=== PATIENT | male | born 1965 | race Two or more races ===

== ENCOUNTER 2016-12-22 14:23 | Inpatient (IN) | payer MEDICAID ==
[~2016-12-22] VITALS: Ht 165.1 cm; Wt 62.6 kg
[2016-12-22 15:41] LABS: MEAN CORPUSCULAR HEMOGLOBIN 30.8 PG (27.0-31.0); MEAN CORPUSCULAR HGB CONC 34.3 G/DL (32.0-36.0); MEAN CORPUSCULAR VOLUME 90 FL (80-99); MEAN PLATELET VOLUME 8.1 FL (6.5-10.1); PLATELET COUNT 165 K/UL (150-450); RED BLOOD COUNT 2.91 M/UL (4.70-6.10); RED CELL DISTRIBUTION WIDTH 16.7 % (11.6-14.8); WHITE BLOOD COUNT 14.7 K/UL (4.8-10.8)
[2016-12-22 15:42] LABS: BASOPHILS % (AUTO) 0.5 % (0.0-2.0); EOSINOPHILS % (AUTO) 0.1 % (0.0-3.0); LYMPHOCYTES % (AUTO) 4.3 % (20.0-45.0); MONOCYTES % (AUTO) 3.4 % (1.0-10.0); NEUTROPHILS % (AUTO) 91.7 % (45.0-75.0)
[2016-12-22 15:50] LABS: ALANINE AMINOTRANSFERASE 53 U/L (3-41); ALBUMIN/GLOBULIN RATIO 0.6 (1.0-2.7); ANION GAP 15 (5-15); ASPARTATE AMINO TRANSFERASE 207 U/L (5-40); CALCIUM 8.7 mg/dL (8.6-10.2); CARBON DIOXIDE 23 mEQ/L (20-30); CHLORIDE 94 mEQ/L (98-107); CREATININE 1.1 mg/dL (0.7-1.2); GLOMERULAR FILTRATION RATE > 60 mL/min (>60); HEMOLYSIS 0; LIPASE 20 U/L (< 60); POTASSIUM 4.9 mEQ/L (3.4-4.9); SODIUM 132 mEQ/L (135-145); TOTAL PROTEIN 6.9 g/dL (6.6-8.7)
[2016-12-22] MEDS ORDERED: Pantoprazole Inj IVP ONE (16:00)
[2016-12-22] MEDS ORDERED: Morphine Sulfate 4mg/ml Inj IVP ONE (16:00)
[2016-12-22 16:06] LABS: INR 1.3 (0.9-1.1); PROTHROMBIN TIME 13.4 SEC (9.30-11.50)
[2016-12-22 16:09] LABS: BILIRUBIN,DIRECT 4.5 mg/dL (0.1-0.3)
[2016-12-22] MEDS ORDERED: cefTRIAXone 2 GM in NS 110 ML IVPB ONE (16:45)
[2016-12-22 17:17] VITALS: BP 100/72
--- NOTE | 2016-12-22 17:51 | Emergency Room Report ---
History of Present Illness General Chief Complaint: Vomiting Source: Patient Present Illness HPI [id number] with known pancreatic cancer and ?mets with abd pain/distention, and vomiting coffee ground emesis x4 today No witnessed emesis in ED Just restarted chemo last week - this was 2nd time this round of chemo Denies diarrhea ?Fever/chills at home Allergies: Coded Allergies: No Known Allergies (Unverified , 12/22/16) Patient History Past Medical History: other - See hpi Past Surgical History: none Pertinent Family History: none Social History: Denies: smoking, alcohol use, drug use Immunizations: UTD Reviewed Nursing Documentation: PMH: Agreed, PSxH: Agreed Nursing Documentation-PMH Hx Cardiac Problems: No - PANCREATIC CANCER Review of Systems All Other Systems: negative except mentioned in HPI Physical Exam Vital Signs Date Time Temp Pulse Resp B/P (MAP) Pulse Ox O2 Delivery O2 Flow Rate FiO2 12/22/16 14:36 98.4 100 16 100/72 100 Room Air Sp02 EP Interpretation: reviewed, normal General Appearance: normal inspection, well appearing, no apparent distress, alert, GCS 15, non-toxic, mild distress Head: normocephalic, atraumatic Eyes: bilateral eye PERRL, bilateral eye EOMI ENT: normal ENT inspection, hearing grossly normal, normal pharynx, no angioedema, normal voice Respiratory: normal inspection, lungs clear, normal breath sounds, no respiratory distress, no retraction, no wheezing Cardiovascular #1: regular rate, rhythm, no edema Gastrointestinal: normal inspection, normal bowel sounds, no guarding, no rebound, distended, tenderness Genitourinary: no CVA tenderness Musculoskeletal: normal inspection, back normal, normal range of motion, Jason' s Sign negative Neurologic: normal inspection, alert, oriented x3, responsive, cardiac cath technologist III-XII nml as tested, motor strength/tone normal, speech normal Psychiatric: normal inspection, judgement/insight normal, mood/affect normal Skin: no rash, warm/dry, jaundice Medical Decision Making Diagnostic Impression: Primary Impression: Vomiting Qualified Codes: R11.2 - Nausea with vomiting, unspecified Additional Impressions: Ascites Qualified Codes: R18.8 - Other ascites Pancreatic mass Anemia Qualified Codes: D64.9 - Anemia, unspecified Upper GI bleed ER Course Alleged GI bleed - H&H stable. INR 1.3 - Was given protonix, zofran - No additional vomiting in ED Abd pain CT: ascites, liver and peritoneal masses, mass pancreas Biliary dilation, ?portal occlusion, large ascites No SBO Elevated LFTs likely d/t liver/pancreas disease Leuks 14.7: Empiric Abx given but doubt SBP as cause of abd pain/distention - more likely distended d/t pancreas/liver mass Blood Cx pending Patient feels much better s/p morphine Very chronically ill, poor prognosis Endorsed to Dr Hensley at 551pm for med/surg admit EKG Diagnostic Results Rate: tachycardiac Rhythm: NSR ST Segments: no acute changes ASA given to the pt in ED: No Rhythm Strip Diag. Results EP Interpretation: yes Rate: 105 Rhythm: NSR, no PVC's, no ectopy Last Vital Signs Date Time Temp Pulse Resp B/P (MAP) Pulse Ox O2 Delivery O2 Flow Rate FiO2 12/22/16 17:17 98.4 16 100/72 100 Room Air 12/22/16 14:36 100 Status: improved Disposition: ADMITTED INPATIENT Condition: Serious Referrals: NOT CHOSEN IPA/,REFERRING (PCP) KAMI TAMEZ M.D. Dec 22, 2016 17:51
[2016-12-22 18:54] LABS: APPEARANCE,URINE CLEAR; KETONES,URINE 1+ (NEGATIVE); LEUKOCYTE ESTERASE ,URINE 1+ (NEGATIVE); NITRITE,URINE NEGATIVE (NEGATIVE); PH,URINE 5 (4.5-8.0); PROTEIN,URINE 1+ (NEGATIVE); UROBILINOGEN,URINE 4 MG/DL (0.0-1.0)
[2016-12-22 19:03] LABS: ICTOTEST POSITIVE
[2016-12-22 19:06] LABS: RBC,URINE 0-2 /HPF (0 - 0)
[2016-12-22 19:07] LABS: BACTERIA,URINE FEW /HPF; WBC,URINE 0-2 /HPF (0 - 0)
[2016-12-22] MEDS ORDERED: SENNA8.6 M2 PO (19:11)
[2016-12-22] MEDS ORDERED: ZOFRAN8 MG ORAL (19:15)
[2016-12-22] MEDS ORDERED: OXYCODONE HCL5 MG ORAL (19:19)
[2016-12-22] MEDS ORDERED: CEFDINIR300 MG PO (19:19)
[2016-12-22] MEDS ORDERED: PROTONIX40 MG ORAL (19:19)
[2016-12-22] MEDS ORDERED: LOPERAMIDE2 MG PO (19:19)
[2016-12-22 19:30] VITALS: BP 104/72
[2016-12-22 20:00] VITALS: BP 112/70
[2016-12-22] MEDS ORDERED: Loperamide 2mg cap ORAL PRN (20:15)
[2016-12-22] MEDS ORDERED: Ondansetron ODT 8mg tab ORAL PRN (20:15)
[2016-12-22] MEDS ORDERED: oxyCODONE 5mg IR tab ORAL PRN (20:15)
[2016-12-22] MEDS ORDERED: Cefdinir 300mg cap ORAL SCH (21:00)
[2016-12-22] MEDS ORDERED: Sennosides 8.6mg ORAL SCH (21:00)
--- NOTE | 2016-12-22 21:23 | Nephrology Progress Note ---
Assessment/Plan Problem List: (1) Anemia (2) Ascites (3) Vomiting (4) Pancreatic mass (5) Upper GI bleed Plan H&P dictated # [id number] Subjective ROS Limited/Unobtainable: Yes Subjective in bed, sleeping, arousable, family at bedside Objective Objective Last 24 Hour Vital Signs Date Time Temp Pulse Resp B/P (MAP) Pulse Ox O2 Delivery O2 Flow Rate FiO2 12/22/16 20:00 98.1 120 22 112/70 96 Room Air 12/22/16 19:31 98.4 124 16 104/72 100 Room Air 12/22/16 19:30 98.4 16 104/72 100 Room Air 12/22/16 17:17 98.4 16 100/72 100 Room Air 12/22/16 16:54 98.4 12/22/16 14:36 98.4 100 16 100/72 100 Room Air Intake and Output 12/22/16 12/23/16 19:00 07:00 Output Total 120 ml 150 ml Balance -120 ml -150 ml Output Urine Total 120 ml 150 ml Laboratory Tests 12/22/16 15:10: White Blood Count 14.7H, Red Blood Count 2.91L, Hemoglobin 8.9L, Hematocrit 26.1L, Mean Corpuscular Volume 90, Mean Corpuscular Hemoglobin 30.8, Mean Corpuscular Hemoglobin Concent 34.3, Red Cell Distribution Width 16.7H, Platelet Count 165, Mean Platelet Volume 8.1, Neutrophils (%) (Auto) 91.7H, Lymphocytes (%) (Auto) 4.3L, Monocytes (%) (Auto) 3.4, Eosinophils (%) (Auto) 0.1, Basophils (%) (Auto) 0.5, Prothrombin Time 13.4H, Prothromb Time International Ratio 1.3H, Sodium Level 132L, Potassium Level 4.9, Chloride Level 94L, Carbon Dioxide Level 23, Anion Gap 15, Blood Urea Nitrogen 42H, Creatinine 1.1, Estimat Glomerular Filtration Rate > 60, Glucose Level 124H, Calcium Level 8.7, Total Bilirubin 7.0H, Direct Bilirubin 4.5H, Aspartate Amino Transf (AST/SGOT) 207H, Alanine Aminotransferase (ALT/SGPT) 53H, Alkaline Phosphatase 431H, Total Protein 6.9, Albumin 2.6L, Globulin 4.3, Albumin/ Globulin Ratio 0.6L, Lipase 20 12/22/16 18:30: Urine Color Brown, Urine Appearance Clear, Urine pH 5, Urine Specific [place] 1.010, Urine Protein 1+H, Urine Glucose (UA) Negative, Urine Ketones 1+H, Urine Occult Blood Negative, Urine Nitrite Negative, Urine Bilirubin 2+H, Urine Ictotest Positive, Urine Urobilinogen 4H, Urine Leukocyte Esterase 1+H, Urine RBC 0-2H, Urine WBC 0-2, Urine Squamous Epithelial Cells None, Urine Bacteria Few Height (Feet): 5 Height (Inches): 6.00 Weight (Pounds): 140 General Appearance: no apparent distress, cachetic Neck: non-tender Cardiovascular: tachycardia Respiratory/Chest: decreased breath sounds Abdomen: distended Extremities: moderate edema Neurologic: alert, motor weakness Roro Cortés N.P. Dec 22, 2016 21:23
[2016-12-22 22:35] VITALS: BP 106/75
[2016-12-23] VITALS: BP 107/75
[2016-12-23 04:00] VITALS: BP 124/84
--- NOTE | 2016-12-23 05:45 | HX and Phyl Repo 2 Sig ---
DATE OF ADMISSION: 12/22/2016 INTERNAL MEDICINE HISTORY AND PHYSICAL History of Present Illness: The patient is a 51-year-old male with a past medical history significant for pancreatic cancer, who presented to the emergency room with coffee-ground emesis status post chemotherapy. According to the patient's family at bedside, we are called because the patient had thrown up after chemotherapy; this is 2nd round. The patient is a poor historian. It is not clear when this patient was diagnosed with pancreatic cancer, but he has been seeing an oncologist at [facility]. No chest pain at this time. Nausea. No vomiting. Pain is generalized. Denies diarrhea. No loss of consciousness. The patient stated that he had some fever and chills at home. PAST MEDICAL HISTORY: Significant for pancreatic cancer. ALLERGIES: He has no known allergies. Home Medications: Include cefdinir 300 mg p.o. q.12 hours, loperamide 2 mg p.o. q.4 p.r.n., ondansetron 8 mg p.o. q.8 p.r.n., oxycodone 10 mg p.o. q.6 hours p.r.n., pantoprazole 40 mg p.o. b.i.d., and senna 8.6 mg p.o. at bedtime. Review Of Systems: Limited at this time due to the patient not willing to provide information at this time. PHYSICAL EXAMINATION: General: This is a 51-year-old male in no apparent distress. The patient is cachectic. HEENT: Head is normocephalic and atraumatic. Pupils are equal, round, and reactive to light and accommodation. NECK: Supple. Trachea midline. LUNGS: Diminished bilaterally. CARDIOVASCULAR: Irregular. The patient is tachycardic. ABDOMEN: Distended. Hyperactive bowel sounds in all 4 quadrants. Extremities: Bilateral lower extremity edema, 3+. No clubbing noted. NEUROLOGIC: The patient is alert and oriented x2. Laboratory Data: CBC: White count 14.7, hemoglobin 8.9, hematocrit 26.1, and platelet count of 165. BMP: Sodium 132, potassium 4.9, chloride 94, bicarbonate 23, BUN 42, creatinine 1.1, blood glucose is 124, total bilirubin is 7.0, direct bilirubin is 4.5, AST 207, ALT 53, and alkaline phosphatase is 431. RADIOLOGIC FINDINGS: None at this time. ASSESSMENT: 1. Pancreatic cancer, status post chemotherapy. 2. Liver disease. 3. Hyponatremia. 4. Generalized pain. 5. Anemia of chronic disease. 6. Leukocytosis. Plan: We will obtain oncology consultation with Dr. Moe. Monitor electrolytes and correct p.r.n. Pain management as needed. Continue PPI. Monitor hemoglobin and hematocrit and transfuse as needed. We will add antibiotics to treatment plan. We will also obtain ID consult as well as GI consult. We will monitor the patient's overall response to treatment. Antolin Lopez M.D. Roro Cortés DR: MAHIN JOB#: [id number] CC:
[2016-12-23 08:32] LABS: MEAN CORPUSCULAR HEMOGLOBIN 30.2 PG (27.0-31.0); MEAN CORPUSCULAR HGB CONC 34.3 G/DL (32.0-36.0); MEAN CORPUSCULAR VOLUME 88 FL (80-99); MEAN PLATELET VOLUME 6.5 FL (6.5-10.1); PLATELET COUNT 218 K/UL (150-450); RED BLOOD COUNT 2.87 M/UL (4.70-6.10); RED CELL DISTRIBUTION WIDTH 17.3 % (11.6-14.8); WHITE BLOOD COUNT 16.1 K/UL (4.8-10.8)
[2016-12-23 08:47] LABS: ALBUMIN/GLOBULIN RATIO 0.4 (1.0-2.7); CREATININE 1.3 mg/dL (0.7-1.2); POTASSIUM 4.7 mEQ/L (3.4-4.9); TOTAL PROTEIN 8.7 g/dL (6.6-8.7)
[2016-12-23 08:50] VITALS: BP 121/80
[2016-12-23 09:58] LABS: BILIRUBIN,DIRECT 5.3 mg/dL (0.1-0.3)
[2016-12-23] MEDS ORDERED: Cefdinir 300mg cap ORAL SCH (10:00)
[2016-12-23] MEDS ORDERED: Morphine Sulfate 2mg/ml Inj IVP PRN (10:00)
[2016-12-23 10:36] LABS: ANISOCYTOSIS 1+; BAND NEUTROPHILS % (MANUAL) 0 % (0-8); BASOPHILS % (MANUAL) 0 % (0-2); EOSINOPHILS % (MANUAL) 0 % (0-3); HYPOCHROMASIA 1+; LYMPHOCYTES % (MANUAL) 10 % (20-45); NEUTROPHILS % (MANUAL) 85 % (45-75); PLATELET ESTIMATE ADEQUATE; PLATELET MORPHOLOGY NORMAL; TOTAL CELLS COUNTED 100
--- NOTE | 2016-12-23 10:57 | Diagnostic Imaging Report ---
Indication: Abdominal pain with history of pancreatic cancer Technique: CT of the abdomen and pelvis utilizing automated exposure control with intravenous contrast. Arterial and venous scanning performed. CT dose: Total DLP 1949 mGycm; CTDI vol 17.6 and 18.8 mGy Comparison: None Findings: A few tiny nodules are seen of the lung bases measuring up to 3 mm. There is a small hiatal hernia. Multiple large masses are noted throughout the liver predominantly involving and replacing the entire right lobe of the liver. Adrenal glands are unremarkable. The spleen is enlarged measuring 15.5 cm. The portal vein is not clearly opacified. There is an apparent mass of the pancreatic head/body grossly measuring 4 cm although this is difficult to differentiate from peripancreatic and retroperitoneal adenopathy. Retroperitoneal adenopathy measures up to 4.5 cm. Multiple areas of nodular peritoneal enhancement are seen measuring up to 8.3 x 1.7 cm adjacent to the liver. There is a large amount of ascites. Gallstones are present. There is a nonobstructive calculus in the lower pole of the right kidney. The small bowel loops are not dilated. There is no free intraperitoneal air. A small fluid containing paraumbilical hernia is present. The bladder is grossly unremarkable. The abdominal aorta is normal in caliber. Degenerative changes of the spine are present. Impression: Pancreatic mass, masses throughout the liver, peritoneal masses and mesenteric and retroperitoneal adenopathy all consistent with reported history of pancreatic cancer and metastatic disease. Large amount of ascites. Clinical correlation recommended. Cholelithiasis. Nonobstructive calculus of the right kidney. Splenomegaly. Few tiny nodules of the partially visualized lung bases. Clinical correlation recommended. Other findings as above. The CT scanner at [facility] is accredited by the [employer] and the scans are performed using protocols designed to limit radiation exposure to as low as reasonably achievable to attain images of sufficient resolution adequate for diagnostic evaluation.
[2016-12-23] MEDS ORDERED: Lactulose 20gm/30ml UDC ORAL SCH (11:00)
[2016-12-23] MEDS: D5 1/2NS 1,000 ML IV SCH (11:06)
--- NOTE | 2016-12-23 11:28 | Diagnostic Imaging Report ---
Indication: Nasogastric tube placement Technique: XRAY ABDOMEN 1VIEW/KUB Comparison: CT abdomen and pelvis 12/22/16 Findings: Nasogastric tube is within the stomach. Bowel gas pattern is nonobstructive. Ascites is again noted. There is contrast in the bladder. Impression: Nasogastric tube within the stomach.
[2016-12-23] MEDS: Vancomycin 1gm in D5W 275ml IVPB SCH (11:50)
[2016-12-23] MEDS: Piperacillin/Tazobactam 3.375 GM in D5W 110 ML IVPB SCH ×2 (11:50→20:05)
[2016-12-23 12:00] VITALS: BP 114/79
[2016-12-23] MEDS ORDERED: oxyCODONE 5mg IR tab ORAL PRN (12:00)
[2016-12-23] MEDS ORDERED: Loperamide 2mg cap ORAL PRN (12:15)
[2016-12-23] MEDS ORDERED: Ondansetron ODT 8mg tab ORAL PRN (14:00)
--- NOTE | 2016-12-23 15:18 | Infectious Diseases Prog Note ---
Assessment/Plan Problems: (1) Sepsis Assessment & Plan: unclear source , rule out peritonitis , VS bacteremia due to chemo, recommend paracentesis and fluids to be sent for culture , continue zosyn and vancomycin (2) Ascites Assessment & Plan: due to liver mets, and infiltrated peritoan, recommend paracentesis to rule out infection , GI and renal are following (3) Upper GI bleed Assessment & Plan: monitor H/H, transfuse as needed, may need EGD, GI is following (4) IMELDA (acute kidney injury) Assessment & Plan: due to the above, avoid nephrotoxic meds, monitor renal function, nephrology is following (5) Adenocarcinoma of pancreas, stage 4 Assessment & Plan: S/P CHEMO X2, recommend oncology consult for further eval and management Subjective Allergies: Coded Allergies: No Known Allergies (Unverified , 12/22/16) Objective Vital Signs Last 24 Hour Vital Signs Date Time Temp Pulse Resp B/P (MAP) Pulse Ox O2 Delivery O2 Flow Rate FiO2 12/23/16 12:00 99.6 130 17 114/79 99 Nasal Cannula 2.0 12/23/16 12:00 131 12/23/16 08:50 97.9 127 20 121/80 100 Nasal Cannula 2.0 12/23/16 08:50 124 12/23/16 04:00 97.8 129 22 124/84 98 Room Air 12/23/16 00:00 98.2 122 20 107/75 98 Room Air 12/22/16 22:35 121 12/22/16 22:35 98.1 120 20 106/75 97 Room Air 12/22/16 20:00 98.1 120 22 112/70 96 Room Air 12/22/16 19:31 98.4 124 16 104/72 100 Room Air 12/22/16 19:30 98.4 16 104/72 100 Room Air 12/22/16 17:17 98.4 16 100/72 100 Room Air 12/22/16 16:54 98.4 Height (Feet): 5 Height (Inches): 6.00 Weight (Pounds): 140 Laboratory Tests Test 12/22/16 15:10 12/22/16 18:30 12/23/16 08:10 White Blood Count 14.7 K/UL (4.8-10.8) H 16.1 K/UL (4.8-10.8) H Red Blood Count 2.91 M/UL (4.70-6.10) L 2.87 M/UL (4.70-6.10) L Hemoglobin 8.9 G/DL (14.2-18.0) L 8.7 G/DL (14.2-18.0) L Hematocrit 26.1 % (42.0-52.0) L 25.3 % (42.0-52.0) L Mean Corpuscular Volume 90 FL (80-99) 88 FL (80-99) Mean Corpuscular Hemoglobin 30.8 PG (27.0-31.0) 30.2 PG (27.0-31.0) Mean Corpuscular Hemoglobin Concent 34.3 G/DL (32.0-36.0) 34.3 G/DL (32.0-36.0) Red Cell Distribution Width 16.7 % (11.6-14.8) H 17.3 % (11.6-14.8) H Platelet Count 165 K/UL (150-450) 218 K/UL (150-450) Mean Platelet Volume 8.1 FL (6.5-10.1) 6.5 FL (6.5-10.1) Neutrophils (%) (Auto) 91.7 % (45.0-75.0) H % (45.0-75.0) Lymphocytes (%) (Auto) 4.3 % (20.0-45.0) L % (20.0-45.0) Monocytes (%) (Auto) 3.4 % (1.0-10.0) % (1.0-10.0) Eosinophils (%) (Auto) 0.1 % (0.0-3.0) % (0.0-3.0) Basophils (%) (Auto) 0.5 % (0.0-2.0) % (0.0-2.0) Prothrombin Time 13.4 SEC (9.30-11.50) H Prothromb Time International Ratio 1.3 (0.9-1.1) H Sodium Level 132 mEQ/L (135-145) L 138 mEQ/L (135-145) Potassium Level 4.9 mEQ/L (3.4-4.9) 4.7 mEQ/L (3.4-4.9) Chloride Level 94 mEQ/L (98-107) L 96 mEQ/L (98-107) L Carbon Dioxide Level 23 mEQ/L (20-30) 16 mEQ/L (20-30) L Anion Gap 15 (5-15) 26 (5-15) H Blood Urea Nitrogen 42 mg/dL (7-23) H 50 mg/dL (7-23) H Creatinine 1.1 mg/dL (0.7-1.2) 1.3 mg/dL (0.7-1.2) H Estimat Glomerular Filtration Rate > 60 mL/min (>60) 58.0 mL/min (>60) Glucose Level 124 mg/dL (74-106) H 134 mg/dL (74-106) H Calcium Level 8.7 mg/dL (8.6-10.2) 9.0 mg/dL (8.6-10.2) Total Bilirubin 7.0 mg/dL (0.0-1.2) H 7.7 mg/dL (0.0-1.2) H Direct Bilirubin 4.5 mg/dL (0.1-0.3) H 5.3 mg/dL (0.1-0.3) H Aspartate Amino Transf (AST/SGOT) 207 U/L (5-40) H 224 U/L (5-40) H Alanine Aminotransferase (ALT/SGPT) 53 U/L (3-41) H 57 U/L (3-41) H Alkaline Phosphatase 431 U/L (40-129) H 420 U/L (40-129) H Total Protein 6.9 g/dL (6.6-8.7) 8.7 g/dL (6.6-8.7) Albumin 2.6 g/dL (3.5-5.2) L 2.6 g/dL (3.5-5.2) L Globulin 4.3 g/dL 6.1 g/dL Albumin/Globulin Ratio 0.6 (1.0-2.7) L 0.4 (1.0-2.7) L Lipase 20 U/L (< 60) Urine Color Brown Urine Appearance Clear Urine pH 5 (4.5-8.0) Urine Specific [place] 1.010 (1.005-1.035) Urine Protein 1+ (NEGATIVE) H Urine Glucose (UA) Negative (NEGATIVE) Urine Ketones 1+ (NEGATIVE) H Urine Occult Blood Negative (NEGATIVE) Urine Nitrite Negative (NEGATIVE) Urine Bilirubin 2+ (NEGATIVE) H Urine Ictotest Positive Urine Urobilinogen 4 MG/DL (0.0-1.0) H Urine Leukocyte Esterase 1+ (NEGATIVE) H Urine RBC 0-2 /HPF (0 - 0) H Urine WBC 0-2 /HPF (0 - 0) Urine Squamous Epithelial Cells None /LPF (NONE/OCC) Urine Bacteria Few /HPF (NONE) Differential Total Cells Counted 100 Neutrophils % (Manual) 85 % (45-75) H Lymphocytes % (Manual) 10 % (20-45) L Monocytes % (Manual) 5 % (1-10) Eosinophils % (Manual) 0 % (0-3) Basophils % (Manual) 0 % (0-2) Band Neutrophils 0 % (0-8) Platelet Estimate Adequate Platelet Morphology Normal Hypochromasia 1+ Anisocytosis 1+ Ammonia 219 umol/L (16-60) H Current Medications Medications (Trade) Dose Ordered Sig/Perla Route PRN Reason Start Time Stop Time Status Last Admin Dose Admin Dextrose/Sodium Chloride 1,000 ml @ 50 mls/hr Q20H IV 12/23/16 11:00 01/22/17 10:59 12/23/16 11:06 Lactulose (Cephulac) 30 gm Q8H ORAL 12/23/16 20:00 01/22/17 19:59 Loperamide HCl (Imodium) 2 mg Q4H PRN ORAL Diarrhea 12/23/16 12:15 01/21/17 20:14 Morphine Sulfate (Morphine Sulfate) 2 mg Q3HR PRN IVP For Pain 12/23/16 10:00 12/30/16 09:59 Ondansetron HCl (Zofran) 4 mg Q6H PRN IVP Nausea & Vomiting 12/23/16 10:00 01/22/17 09:59 Pantoprazole (Protonix) 40 mg BIAC IVP 12/23/16 16:30 01/22/17 16:29 Piperacillin Sod/ Tazobactam Sod 3.375 gm/Dextrose 110 ml @ 27.5 mls/hr Q8H IVPB 12/23/16 12:00 12/30/16 11:59 12/23/16 11:50 Rifaximin (Xifaxan) 550 mg EVERY 12 HOURS ORAL 12/23/16 21:00 12/30/16 20:59 Vancomycin HCl (Vanco rx to dose) 1 ea DAILY PRN MISC Per rx protocol 12/23/16 10:00 01/22/17 09:59 Vancomycin HCl 1 gm/Dextrose 275 ml @ 183.708 mls/hr Q12H IVPB 12/23/16 12:00 12/28/16 11:59 12/23/16 11:50 Rody Quevedo M.D. Dec 23, 2016 15:18
--- NOTE | 2016-12-23 15:23 | Cardiac Electrophysiology PN ---
Subjective Subjective [id number] Objective Last 24 Hour Vital Signs Date Time Temp Pulse Resp B/P (MAP) Pulse Ox O2 Delivery O2 Flow Rate FiO2 12/23/16 12:00 99.6 130 17 114/79 99 Nasal Cannula 2.0 12/23/16 12:00 131 12/23/16 08:50 97.9 127 20 121/80 100 Nasal Cannula 2.0 12/23/16 08:50 124 12/23/16 04:00 97.8 129 22 124/84 98 Room Air 12/23/16 00:00 98.2 122 20 107/75 98 Room Air 12/22/16 22:35 121 12/22/16 22:35 98.1 120 20 106/75 97 Room Air 12/22/16 20:00 98.1 120 22 112/70 96 Room Air 12/22/16 19:31 98.4 124 16 104/72 100 Room Air 12/22/16 19:30 98.4 16 104/72 100 Room Air 12/22/16 17:17 98.4 16 100/72 100 Room Air 12/22/16 16:54 98.4 Intake and Output 12/23/16 12/24/16 19:00 07:00 Intake Total 407.500 ml Balance 407.500 ml Intake IV Total 407.500 ml Laboratory Tests Test 12/22/16 18:30 12/23/16 08:10 Urine Color Brown Urine Appearance Clear Urine pH 5 (4.5-8.0) Urine Specific [place] 1.010 (1.005-1.035) Urine Protein 1+ (NEGATIVE) H Urine Glucose (UA) Negative (NEGATIVE) Urine Ketones 1+ (NEGATIVE) H Urine Occult Blood Negative (NEGATIVE) Urine Nitrite Negative (NEGATIVE) Urine Bilirubin 2+ (NEGATIVE) H Urine Ictotest Positive Urine Urobilinogen 4 MG/DL (0.0-1.0) H Urine Leukocyte Esterase 1+ (NEGATIVE) H Urine RBC 0-2 /HPF (0 - 0) H Urine WBC 0-2 /HPF (0 - 0) Urine Squamous Epithelial Cells None /LPF (NONE/OCC) Urine Bacteria Few /HPF (NONE) White Blood Count 16.1 K/UL (4.8-10.8) H Red Blood Count 2.87 M/UL (4.70-6.10) L Hemoglobin 8.7 G/DL (14.2-18.0) L Hematocrit 25.3 % (42.0-52.0) L Mean Corpuscular Volume 88 FL (80-99) Mean Corpuscular Hemoglobin 30.2 PG (27.0-31.0) Mean Corpuscular Hemoglobin Concent 34.3 G/DL (32.0-36.0) Red Cell Distribution Width 17.3 % (11.6-14.8) H Platelet Count 218 K/UL (150-450) Mean Platelet Volume 6.5 FL (6.5-10.1) Neutrophils (%) (Auto) % (45.0-75.0) Lymphocytes (%) (Auto) % (20.0-45.0) Monocytes (%) (Auto) % (1.0-10.0) Eosinophils (%) (Auto) % (0.0-3.0) Basophils (%) (Auto) % (0.0-2.0) Differential Total Cells Counted 100 Neutrophils % (Manual) 85 % (45-75) H Lymphocytes % (Manual) 10 % (20-45) L Monocytes % (Manual) 5 % (1-10) Eosinophils % (Manual) 0 % (0-3) Basophils % (Manual) 0 % (0-2) Band Neutrophils 0 % (0-8) Platelet Estimate Adequate Platelet Morphology Normal Hypochromasia 1+ Anisocytosis 1+ Sodium Level 138 mEQ/L (135-145) Potassium Level 4.7 mEQ/L (3.4-4.9) Chloride Level 96 mEQ/L (98-107) L Carbon Dioxide Level 16 mEQ/L (20-30) L Anion Gap 26 (5-15) H Blood Urea Nitrogen 50 mg/dL (7-23) H Creatinine 1.3 mg/dL (0.7-1.2) H Estimat Glomerular Filtration Rate 58.0 mL/min (>60) Glucose Level 134 mg/dL (74-106) H Calcium Level 9.0 mg/dL (8.6-10.2) Total Bilirubin 7.7 mg/dL (0.0-1.2) H Direct Bilirubin 5.3 mg/dL (0.1-0.3) H Aspartate Amino Transf (AST/SGOT) 224 U/L (5-40) H Alanine Aminotransferase (ALT/SGPT) 57 U/L (3-41) H Alkaline Phosphatase 420 U/L (40-129) H Ammonia 219 umol/L (16-60) H Total Protein 8.7 g/dL (6.6-8.7) Albumin 2.6 g/dL (3.5-5.2) L Globulin 6.1 g/dL Albumin/Globulin Ratio 0.4 (1.0-2.7) L MELBA IBRAHIM Dec 23, 2016 15:23
[2016-12-23 16:00] VITALS: BP 117/74
[2016-12-23] MEDS: Pantoprazole Inj IVP SCH (16:25)
--- NOTE | 2016-12-23 17:04 | Nephrology Progress Note ---
Assessment/Plan Problem List: (1) Anemia (2) Ascites (3) Vomiting (4) Pancreatic mass (5) Upper GI bleed (6) Sepsis (7) IMELDA (acute kidney injury) (8) Adenocarcinoma of pancreas, stage 4 Plan Neuro consult - AMS CT head Awaiting GI and oncology consults Cardio following Monitor renal function, avoid nephrotoxins Abx per ID Monitor Lytes Monitor neuro status AM labs Subjective ROS Limited/Unobtainable: Yes Subjective In bed, unresponsive, family at bedside Objective Objective Last 24 Hour Vital Signs Date Time Temp Pulse Resp B/P (MAP) Pulse Ox O2 Delivery O2 Flow Rate FiO2 12/23/16 12:00 99.6 130 17 114/79 99 Nasal Cannula 2.0 12/23/16 12:00 131 12/23/16 08:50 97.9 127 20 121/80 100 Nasal Cannula 2.0 12/23/16 08:50 124 12/23/16 04:00 97.8 129 22 124/84 98 Room Air 12/23/16 00:00 98.2 122 20 107/75 98 Room Air 12/22/16 22:35 121 12/22/16 22:35 98.1 120 20 106/75 97 Room Air 12/22/16 20:00 98.1 120 22 112/70 96 Room Air 12/22/16 19:31 98.4 124 16 104/72 100 Room Air 12/22/16 19:30 98.4 16 104/72 100 Room Air 12/22/16 17:17 98.4 16 100/72 100 Room Air Intake and Output 12/23/16 12/24/16 19:00 07:00 Intake Total 535.000 ml Balance 535.000 ml Intake IV Total 535.000 ml Laboratory Tests 12/22/16 18:30: Urine Color Brown, Urine Appearance Clear, Urine pH 5, Urine Specific [place] 1.010, Urine Protein 1+H, Urine Glucose (UA) Negative, Urine Ketones 1+H, Urine Occult Blood Negative, Urine Nitrite Negative, Urine Bilirubin 2+H, Urine Ictotest Positive, Urine Urobilinogen 4H, Urine Leukocyte Esterase 1+H, Urine RBC 0-2H, Urine WBC 0-2, Urine Squamous Epithelial Cells None, Urine Bacteria Few 12/23/16 08:10: White Blood Count 16.1H, Red Blood Count 2.87L, Hemoglobin 8.7L, Hematocrit 25.3L, Mean Corpuscular Volume 88, Mean Corpuscular Hemoglobin 30.2, Mean Corpuscular Hemoglobin Concent 34.3, Red Cell Distribution Width 17.3H, Platelet Count 218, Mean Platelet Volume 6.5, Neutrophils (%) (Auto) , Lymphocytes (%) (Auto) , Monocytes (%) (Auto) , Eosinophils (%) (Auto) , Basophils (%) (Auto) , Differential Total Cells Counted 100, Neutrophils % ( Manual) 85H, Lymphocytes % (Manual) 10L, Monocytes % (Manual) 5, Eosinophils % ( Manual) 0, Basophils % (Manual) 0, Band Neutrophils 0, Platelet Estimate Adequate, Platelet Morphology Normal, Hypochromasia 1+, Anisocytosis 1+, Sodium Level 138, Potassium Level 4.7, Chloride Level 96L, Carbon Dioxide Level 16L, Anion Gap 26H, Blood Urea Nitrogen 50H, Creatinine 1.3H, Estimat Glomerular Filtration Rate 58.0, Glucose Level 134H, Calcium Level 9.0, Total Bilirubin 7.7H, Direct Bilirubin 5.3H, Aspartate Amino Transf (AST/SGOT) 224H, Alanine Aminotransferase (ALT/SGPT) 57H, Alkaline Phosphatase 420H, Ammonia 219H, Total Protein 8.7, Albumin 2.6L, Globulin 6.1, Albumin/Globulin Ratio 0.4L Height (Feet): 5 Height (Inches): 6.00 Weight (Pounds): 140 General Appearance: no apparent distress, alert EENT: normal ENT inspection Neck: normal alignment, supple Cardiovascular: normal rate, regular rhythm Respiratory/Chest: decreased breath sounds Abdomen: non tender, decreased bowel sounds, distended Extremities: moderate edema, pitting Neurologic: unresponsive Roro Cortés N.P. Dec 23, 2016 17:04
--- NOTE | 2016-12-23 19:51 | General Progress Note ---
Assessment/Plan Problem List: (1) Encephalopathy ICD Codes: G93.40 - Encephalopathy, unspecified SNOMED: 04596267, 354886667 (2) juandice (3) Adenocarcinoma of pancreas, stage 4 ICD Codes: C25.9 - Malignant neoplasm of pancreas, unspecified SNOMED: 68457650, 805371661 (4) Sepsis ICD Codes: A41.9 - Sepsis, unspecified organism SNOMED: 29186564 (5) Upper GI bleed ICD Codes: K92.2 - Gastrointestinal hemorrhage, unspecified SNOMED: 53868740 (6) Ascites ICD Codes: R18.8 - Other ascites SNOMED: 726394072 Qualifiers: Qualified Codes: R18.8 - Other ascites (7) Anemia ICD Codes: D64.9 - Anemia, unspecified SNOMED: 881812097 Qualifiers: Qualified Codes: D64.9 - Anemia, unspecified Assessment/Plan fu H&H PRN blood transfusion poor prognosis abx vit K lactulose and xifaxan Subjective ROS Limited/Unobtainable: No Allergies: Coded Allergies: No Known Allergies (Unverified , 12/22/16) Objective Last 24 Hour Vital Signs Date Time Temp Pulse Resp B/P (MAP) Pulse Ox O2 Delivery O2 Flow Rate FiO2 12/23/16 18:00 130 12/23/16 18:00 98.2 12/23/16 16:00 99.4 130 19 117/74 99 Nasal Cannula 2.0 12/23/16 12:00 99.6 130 17 114/79 99 Nasal Cannula 2.0 12/23/16 12:00 131 12/23/16 08:50 97.9 127 20 121/80 100 Nasal Cannula 2.0 12/23/16 08:50 124 12/23/16 04:00 97.8 129 22 124/84 98 Room Air 12/23/16 00:00 98.2 122 20 107/75 98 Room Air 12/22/16 22:35 121 12/22/16 22:35 98.1 120 20 106/75 97 Room Air 12/22/16 20:00 98.1 120 22 112/70 96 Room Air Intake and Output 12/23/16 12/24/16 19:00 07:00 Intake Total 885.000 ml Output Total 400 ml Balance 485.000 ml Intake Free Water 200 ml IV Total 685.000 ml Output Urine Total 400 ml Laboratory Tests 12/23/16 08:10: White Blood Count 16.1H, Red Blood Count 2.87L, Hemoglobin 8.7L, Hematocrit 25.3L, Mean Corpuscular Volume 88, Mean Corpuscular Hemoglobin 30.2, Mean Corpuscular Hemoglobin Concent 34.3, Red Cell Distribution Width 17.3H, Platelet Count 218, Mean Platelet Volume 6.5, Neutrophils (%) (Auto) , Lymphocytes (%) (Auto) , Monocytes (%) (Auto) , Eosinophils (%) (Auto) , Basophils (%) (Auto) , Differential Total Cells Counted 100, Neutrophils % ( Manual) 85H, Lymphocytes % (Manual) 10L, Monocytes % (Manual) 5, Eosinophils % ( Manual) 0, Basophils % (Manual) 0, Band Neutrophils 0, Platelet Estimate Adequate, Platelet Morphology Normal, Hypochromasia 1+, Anisocytosis 1+, Sodium Level 138, Potassium Level 4.7, Chloride Level 96L, Carbon Dioxide Level 16L, Anion Gap 26H, Blood Urea Nitrogen 50H, Creatinine 1.3H, Estimat Glomerular Filtration Rate 58.0, Glucose Level 134H, Calcium Level 9.0, Total Bilirubin 7.7H, Direct Bilirubin 5.3H, Aspartate Amino Transf (AST/SGOT) 224H, Alanine Aminotransferase (ALT/SGPT) 57H, Alkaline Phosphatase 420H, Ammonia 219H, Total Protein 8.7, Albumin 2.6L, Globulin 6.1, Albumin/Globulin Ratio 0.4L Height (Feet): 5 Height (Inches): 6.00 Weight (Pounds): 140 General Appearance: lethargic EENT: scleral icterus Neck: supple Cardiovascular: normal rate Respiratory/Chest: decreased breath sounds Abdomen: soft, decreased bowel sounds, distended Extremities: non-tender NIRANJAN CHOI Dec 23, 2016 19:51
[2016-12-23 20:00] VITALS: BP 128/85
[2016-12-23] MEDS: Lactulose 20gm/30ml UDC ORAL SCH (20:34)
[2016-12-23] MEDS ORDERED: Phytonadione 1 MG in D5W 55 ML IVPB ONE (21:00)
[2016-12-23] MEDS ORDERED: Sennosides 8.6mg ORAL SCH (21:00)
[2016-12-23] MEDS: Dyna-Hex 2% Top Sol 2oz TOPIC SCH ×2 (22:45→23:00)
--- NOTE | 2016-12-23 23:45 | Consultation ---
DATE OF CONSULTATION: INFECTIOUS DISEASE CONSULTATION CONSULTING PHYSICIAN: Rody Quevedo M.D. REQUESTING PHYSICIAN: Antolin Lopez M.D. Reason For Consultation: Leukocytosis and sepsis, recommendation for antibiotics treatment. History Of Present Illness: The patient is a 51-year-old male with past medical history of pancreatic cancer stage IV with diffuse metastases to the liver and the peritoneum, who has been on chemotherapy, received second course last week at [facility], was brought into [facility] emergency room for coffee-ground emesis and altered mental status. The patient was noticed by his son that he was vomiting dark coffee-ground material. He became later unresponsive, so he was brought into the emergency room for evaluation. The patient had an NG tube placement, which was draining dark colored bloody fluid. His white count was found to be elevated around 16,000, so he was started on IV antibiotics empirically and I was consulted by the primary provider for antibiotics choice and further treatment. As of note, the patient is altered, unresponsive, and does not follow commands. He cannot provide any history and history was mainly obtained from his son and family member at the bedside. Past Medical History: Significant for end-stage pancreatic cancer with metastases status post chemo x2, liver cirrhosis, and hepatic encephalopathy. PAST SURGICAL HISTORY: Negative. Medications: He received ceftriaxone and cefdinir in the emergency room. He was also started on vancomycin and Zosyn here by the admitting team. For the rest of his medications, please refer to [facility]. ALLERGIES: No known drug allergies. Social History: The patient lives at home with family. No recent drugs, tobacco, or alcohol. FAMILY HISTORY: Unable to obtain. REVIEW OF SYSTEMS: Unable to obtain. PHYSICAL EXAMINATION: Vital Signs: Temperature 99.6 degrees, pulse 131, respirations 17, blood pressure 114/79, and saturation 99% on two liters nasal cannula. General: An elderly male, cachectic with massive ascites, NG-tube in naris, has coffee-ground emesis, unresponsive, lying in bed, and not in acute distress. HEENT: Normocephalic and atraumatic. Pupils sluggish. Dry oral mucosa. Coffee-ground emesis coming out of the NG tube in his naris. NECK: Supple. No lymphadenopathy. CARDIOVASCULAR: Regular rate and rhythm. No murmur. No gallops. Lungs: He has diminished breathing sounds at the bases. No wheezing or rhonchi. Abdomen: Distended with massive ascites. Positive wave sign. Unable to appreciate organomegaly. No rebound. Normal skin texture. EXTREMITIES: Trace edema. No cyanosis or clubbing. Laboratory Data: Labs showed white count of 16.1, hemoglobin of 8.7, and platelet count of 218,000. BUN of 50 and creatinine of 1.3. Urinalysis showed +1 leukocyte esterase, WBC 0 to 2, and few urine bacteria. Imaging: CT scan of the abdomen and pelvis showed pancreatic mass with masses throughout the liver, peritoneal masses, mesenteric and retroperitoneal adenopathy, all consistent with history of pancreatic cancer, cholelithiasis, and non-obstructive calculus of the right kidney. ASSESSMENT AND RECOMMENDATIONS: 1. Sepsis, unclear source, rule out peritonitis versus bacteremia. Recommend paracentesis and fluid to be sent for culture. We will continue Zosyn and vancomycin empiric treatment for now, pending culture results including the blood culture. 2. Ascites, suspect due to liver metastasis and infiltrated peritoneum. Recommend paracentesis to rule out infection. GI and Renal are following. 3. Upper gastrointestinal bleeding. Monitor hemoglobin and hematocrit. Transfuse as needed. May need EGD. 4. Acute kidney injury due to the above. Avoid nephrotoxic medicine. Monitor renal function. 5. Adenocarcinoma of the pancreas, stage IV, status post chemotherapy x2. Recommend Oncology consult for further evaluation and management. Rody Quevedo M.D. DR: MARIE JOB#: [id number] CC:
[2016-12-24] VITALS (7 sets, daily range): BP systolic 96–105; BP diastolic 17–77
[2016-12-24] MEDS: Vancomycin 1gm in D5W 275ml IVPB SCH (00:30)
--- NOTE | 2016-12-24 02:00 | Consultation ---
DATE OF CONSULTATION: 12/23/2016 CARDIOLOGY CONSULTATION CONSULTING PHYSICIAN: Sidney Ramirez M.D. REFERRING PHYSICIAN: Antolin Lopez M.D. REASON FOR CONSULTATION: Tachycardia. History Of Present Illness: The patient is a 51-year-old gentleman with history of pancreatic cancer who came to the emergency room with coffee-ground emesis. The patient is status post chemotherapy. The patient has been off chemotherapy and this was his second round. The patient has been seeing an oncologist at the [facility]. The patient was admitted and noted to be tachycardic and a Cardiology consultation was obtained for further evaluation and management. Review Of Systems: Cannot be obtained as the patient is quite altered at this time. PAST MEDICAL HISTORY: Includes pancreatic cancer. MEDICATIONS: Per reconciliation. ALLERGIES: He has no known drug allergies. FAMILY HISTORY: Noncontributory. PHYSICAL EXAMINATION: Vital Signs: Blood pressure 110/70, pulse is 120, respirations 18, and he is afebrile. Head and Neck: Positive JVD with an NG tube with coffee-ground emesis. LUNGS: Decreased breath sounds. CARDIOVASCULAR: Tachycardic. S1 and S2. ABDOMEN: Distended. EXTREMITIES: 2+ pitting edema. Laboratory Data: Show a white count of 16, hemoglobin of 8.7, hematocrit 25.3, and platelet count of 218,000. Sodium 138, potassium 4.7, BUN of 15, creatinine 1.3, glucose of 134, INR is 1.3. ASSESSMENT AND PLAN: 1. Tachycardia. This is due to the patient's hepatic encephalopathy and sepsis. No evidence of atrial fibrillation due to sinus tachycardia. 2. Coffee-ground emesis in a patient with history of pancreatic cancer, placed on Xifaxan and lactulose, Protonix, antibiotics vancomycin and Zosyn. Further evaluation by Dr. Villanueva. 3. Anemia, gastrointestinal bleed. 4. Hyponatremia. Thank very much, Dr. Lopez, for allowing me to participate in the care of this patient. Please do not hesitate to contact me for any questions regarding my evaluation. Sidney Ramirez M.D. DR: Monae JOB#: [id number] CC:
[2016-12-24] MEDS: Lactulose 20gm/30ml UDC ORAL SCH ×3 (04:44→19:40)
[2016-12-24] MEDS: Piperacillin/Tazobactam 3.375 GM in D5W 110 ML IVPB SCH ×3 (04:45→19:41)
[2016-12-24] MEDS: Pantoprazole Inj IVP SCH ×2 (06:07→16:27)
[2016-12-24] MEDS: D5 1/2NS 1,000 ML IV SCH (06:07)
[2016-12-24 06:33] LABS: MEAN CORPUSCULAR HEMOGLOBIN 30.6 PG (27.0-31.0); MEAN CORPUSCULAR HGB CONC 34.3 G/DL (32.0-36.0); MEAN CORPUSCULAR VOLUME 89 FL (80-99); MEAN PLATELET VOLUME 6.5 FL (6.5-10.1); PLATELET COUNT 182 K/UL (150-450); RED BLOOD COUNT 2.67 M/UL (4.70-6.10); RED CELL DISTRIBUTION WIDTH 18.6 % (11.6-14.8); WHITE BLOOD COUNT 13.8 K/UL (4.8-10.8)
[2016-12-24 06:57] LABS: HEMOLYSIS 0; IRON 53 ug/dL (59-158); TOTAL IRON BINDING CAPACITY 127 ug/dL (250-400)
[2016-12-24 06:58] LABS: CALCIUM 8.6 mg/dL (8.6-10.2); CREATININE 1.5 mg/dL (0.7-1.2); GLOMERULAR FILTRATION RATE 49.1 mL/min (>60); POTASSIUM 3.1 mEQ/L (3.4-4.9)
--- NOTE | 2016-12-24 09:10 | Diagnostic Imaging Report ---
Indication: Abdominal distention Technique: Ultrasound of the abdomen. Comparison: CT abdomen and pelvis 12/22/16 Findings: The pancreas is not well visualized. Liver is heterogeneous with nodularity of the surface and multiple liver masses better demonstrated by CT. The main portal vein is not clearly identified. Gallstones are present. Gallbladder wall measures 2 mm. Common bile duct measures 7 mm. Right kidney measures 10.5 cm without hydronephrosis. Left kidney measures 11.1 cm without hydronephrosis. There is a nonobstructive calculus in the lower pole of the right kidney. The spleen is enlarged measuring 13.6 cm. There is a large amount of ascites. Visualized IVC and abdominal aorta are grossly unremarkable. Impression: Cholelithiasis. Heterogeneous appearance of the liver with surface nodularity. Liver masses better demonstrated by CT. Main portal vein not clearly identified. Large amount of ascites. Peritoneal masses better demonstrated by CT. Splenomegaly. Pancreas obscured by overlying bowel gas. Other findings as above.
--- NOTE | 2016-12-24 10:34 | Diagnostic Imaging Report ---
Indication: Shortness of breath Technique: XRAY CHEST 1 V Comparison: None Findings: Nasogastric tube is within the stomach. There is a left PICC line with the tip projecting over the right atrium. There is poor inspiration but no gross consolidation. Cardiomediastinal silhouette is within normal limits. Impression: Poor inspiration but no obvious acute cardiopulmonary disease. Nasogastric tube within the stomach. Left PICC line.
--- NOTE | 2016-12-24 10:34 | Diagnostic Imaging Report ---
Indication: Altered mental status Technique: Continuous helical CT scanning of the head was performed utilizing automated exposure control without intravenous contrast material. Axial and coronal reconstructions were obtained. Comparison: None CT dose: Total DLP 1914 mGycm; CTDI vol 70.4 mGy Findings: There is no acute intracranial hemorrhage, mass effect or cortical edema. The ventricles, cisterns and sulci are within normal limits. The posterior fossa and fourth ventricle are unremarkable. Sellar and suprasellar regions are grossly unremarkable. Visualized mastoid air cells and paranasal sinuses are unremarkable. No focal lesions of the bony calvarium or soft tissues of the scalp are seen. Impression: No evidence of acute intracranial hemorrhage, mass effect or cortical edema. MRI may be obtained for more sensitive evaluation as clinically indicated. The CT scanner at [facility] is accredited by the [employer] and the scans are performed using protocols designed to limit radiation exposure to as low as reasonably achievable to attain images of sufficient resolution adequate for diagnostic evaluation.
[2016-12-24 11:07] LABS: BAND NEUTROPHILS % (MANUAL) 2 % (0-8); LYMPHOCYTES % (MANUAL) 5 % (20-45); NEUTROPHILS % (MANUAL) 87 % (45-75); TOTAL CELLS COUNTED 100
[2016-12-24 11:08] LABS: ANISOCYTOSIS 2+; BASOPHILS % (MANUAL) 0 % (0-2); EOSINOPHILS % (MANUAL) 0 % (0-3); HYPOCHROMASIA 2+; PLATELET ESTIMATE ADEQUATE; PLATELET MORPHOLOGY NORMAL
--- NOTE | 2016-12-24 13:12 | Nephrology Progress Note ---
Assessment/Plan Problem List: (1) Anemia (2) Ascites (3) Vomiting (4) Pancreatic mass (5) Upper GI bleed (6) Sepsis (7) IMELDA (acute kidney injury) (8) Adenocarcinoma of pancreas, stage 4 Plan Neuro consult - AMS CT head - negative onco following Cardio following GI following Continue NGT Obtain medical records from [facility] Monitor renal function, avoid nephrotoxins Abx per ID Monitor Lytes Monitor neuro status AM labs Subjective ROS Limited/Unobtainable: Yes Subjective In bed, unresponsive, family at bedside, NGT- coffee ground drainage Objective Objective Last 24 Hour Vital Signs Date Time Temp Pulse Resp B/P (MAP) Pulse Ox O2 Delivery O2 Flow Rate FiO2 12/24/16 08:00 97.3 118 19 105/71 99 Nasal Cannula 2.0 12/24/16 08:00 114 12/24/16 04:00 98.1 120 20 102/70 100 Room Air 2.0 12/24/16 04:00 119 12/24/16 00:27 112 26 Nasal Cannula 2.0 28 12/24/16 00:00 97.3 120 20 101/17 99 Room Air 12/24/16 00:00 121 12/24/16 00:00 97.3 20 101/77 99 Room Air 2.0 12/23/16 20:00 97.6 133 29 128/85 99 12/23/16 19:57 140 12/23/16 18:00 130 12/23/16 18:00 98.2 12/23/16 16:00 99.4 130 19 117/74 99 Nasal Cannula 2.0 Laboratory Tests 12/24/16 05:40: White Blood Count 13.8H, Red Blood Count 2.67L, Hemoglobin 8.2L, Hematocrit 23.8L, Mean Corpuscular Volume 89, Mean Corpuscular Hemoglobin 30.6, Mean Corpuscular Hemoglobin Concent 34.3, Red Cell Distribution Width 18.6H, Platelet Count 182, Mean Platelet Volume 6.5, Neutrophils (%) (Auto) , Lymphocytes (%) (Auto) , Monocytes (%) (Auto) , Eosinophils (%) (Auto) , Basophils (%) (Auto) , Differential Total Cells Counted 100, Neutrophils % ( Manual) 87H, Lymphocytes % (Manual) 5L, Monocytes % (Manual) 6, Eosinophils % ( Manual) 0, Basophils % (Manual) 0, Band Neutrophils 2, Platelet Estimate Adequate, Platelet Morphology Normal, Hypochromasia 2+, Anisocytosis 2+, Haptoglobin 127, Sodium Level 141, Potassium Level 3.1L, Chloride Level 101, Carbon Dioxide Level 21, Anion Gap 19H, Blood Urea Nitrogen 44H, Creatinine 1.5H , Estimat Glomerular Filtration Rate 49.1, Glucose Level 120H, Calcium Level 8.6 , Iron Level 53L, Total Iron Binding Capacity 127L, Percent Iron Saturation 42, Unsaturated Iron Binding 74L, Pro-B-Type Natriuretic Peptide 2131H, CA 19-9 Antigen 150.8H, Vitamin B12 Level > 2000H, Methylmalonic Acid [Pending], Folate [Pending], Thyroid Stimulating Hormone (TSH) 2.190 12/24/16 11:00: Vancomycin Level Trough 21.9H Height (Feet): 5 Height (Inches): 6.00 Weight (Pounds): 140 General Appearance: cachetic Neck: non-tender Cardiovascular: normal rate Respiratory/Chest: decreased breath sounds Abdomen: distended, mass, hepatomegaly Genitourinary/Rectal: other - christopher Extremities: moderate edema, pitting Neurologic: unresponsive Roro Cortés N.P. Dec 24, 2016 13:12
--- NOTE | 2016-12-24 13:27 | Infectious Diseases Prog Note ---
Assessment/Plan Problems: (1) Sepsis Assessment & Plan: unclear source , rule out peritonitis , VS bacteremia , recommend paracentesis and fluids to be sent for culture , continue zosyn empirically, and stop vancomycin , check trough (2) Ascites Assessment & Plan: due to liver mets, and infiltrated peritoan, recommend paracentesis to rule out infection , GI and renal are following (3) Upper GI bleed Assessment & Plan: monitor H/H, transfuse as needed, may need EGD, GI is following (4) IMELDA (acute kidney injury) Assessment & Plan: due to the above, avoid nephrotoxic meds, monitor renal function, nephrology is following, will stop vancomycin (5) Adenocarcinoma of pancreas, stage 4 Assessment & Plan: S/P CHEMO X2, recommend oncology consult for further eval and management Subjective ROS Limited/Unobtainable: Yes Allergies: Coded Allergies: No Known Allergies (Unverified , 12/22/16) Subjective he is still altered, unresponsive, has coffe ground emesis in his NGT Objective Vital Signs Last 24 Hour Vital Signs Date Time Temp Pulse Resp B/P (MAP) Pulse Ox O2 Delivery O2 Flow Rate FiO2 12/24/16 08:00 97.3 118 19 105/71 99 Nasal Cannula 2.0 12/24/16 08:00 114 12/24/16 04:00 98.1 120 20 102/70 100 Room Air 2.0 12/24/16 04:00 119 12/24/16 00:27 112 26 Nasal Cannula 2.0 28 12/24/16 00:00 97.3 120 20 101/17 99 Room Air 12/24/16 00:00 121 12/24/16 00:00 97.3 20 101/77 99 Room Air 2.0 12/23/16 20:00 97.6 133 29 128/85 99 12/23/16 19:57 140 12/23/16 18:00 130 12/23/16 18:00 98.2 12/23/16 16:00 99.4 130 19 117/74 99 Nasal Cannula 2.0 Height (Feet): 5 Height (Inches): 6.00 Weight (Pounds): 140 General Appearance: WD/WN, no acute distress, cachetic HEENT: normocephalic, atraumatic, supple, no JVD Respiratory/Chest: chest wall non-tender, no respiratory distress, no accessory muscle use, decreased breath sounds, crackles/rales Cardiovascular: normal peripheral pulses, normal rate, regular rhythm, no gallop/murmur, no JVD Abdomen: soft, non tender, no mass, no scars, hypoactive bowel sounds, distended, hepatomegaly, other - massive ascites Genitourinary: normal external genitalia Extremities: no cyanosis, no clubbing Neurologic/Psychiatric: unresponsiveness Microbiology Date/Time Source Procedure Growth Status 12/22/16 15:10 Blood Blood Culture - Preliminary NO GROWTH AFTER 24 HOURS Resulted 12/22/16 15:00 Blood Blood Culture - Preliminary NO GROWTH AFTER 24 HOURS Resulted Laboratory Tests Test 12/24/16 05:40 12/24/16 11:00 White Blood Count 13.8 K/UL (4.8-10.8) H Red Blood Count 2.67 M/UL (4.70-6.10) L Hemoglobin 8.2 G/DL (14.2-18.0) L Hematocrit 23.8 % (42.0-52.0) L Mean Corpuscular Volume 89 FL (80-99) Mean Corpuscular Hemoglobin 30.6 PG (27.0-31.0) Mean Corpuscular Hemoglobin Concent 34.3 G/DL (32.0-36.0) Red Cell Distribution Width 18.6 % (11.6-14.8) H Platelet Count 182 K/UL (150-450) Mean Platelet Volume 6.5 FL (6.5-10.1) Neutrophils (%) (Auto) % (45.0-75.0) Lymphocytes (%) (Auto) % (20.0-45.0) Monocytes (%) (Auto) % (1.0-10.0) Eosinophils (%) (Auto) % (0.0-3.0) Basophils (%) (Auto) % (0.0-2.0) Differential Total Cells Counted 100 Neutrophils % (Manual) 87 % (45-75) H Lymphocytes % (Manual) 5 % (20-45) L Monocytes % (Manual) 6 % (1-10) Eosinophils % (Manual) 0 % (0-3) Basophils % (Manual) 0 % (0-2) Band Neutrophils 2 % (0-8) Platelet Estimate Adequate Platelet Morphology Normal Hypochromasia 2+ Anisocytosis 2+ Haptoglobin 127 mg/dL (30-200) Sodium Level 141 mEQ/L (135-145) Potassium Level 3.1 mEQ/L (3.4-4.9) L Chloride Level 101 mEQ/L (98-107) Carbon Dioxide Level 21 mEQ/L (20-30) Anion Gap 19 (5-15) H Blood Urea Nitrogen 44 mg/dL (7-23) H Creatinine 1.5 mg/dL (0.7-1.2) H Estimat Glomerular Filtration Rate 49.1 mL/min (>60) Glucose Level 120 mg/dL (74-106) H Calcium Level 8.6 mg/dL (8.6-10.2) Iron Level 53 ug/dL (59-158) L Total Iron Binding Capacity 127 ug/dL (250-400) L Percent Iron Saturation 42 % (15-50) Unsaturated Iron Binding 74 ug/dL (112-346) L Pro-B-Type Natriuretic Peptide 2131 pg/mL (0-125) H CA 19-9 Antigen 150.8 U/mL (< 37) H Vitamin B12 Level > 2000 PG/ML (193-986) H Methylmalonic Acid Pending Folate Pending Thyroid Stimulating Hormone (TSH) 2.190 uIU/mL (0.300-4.500) Vancomycin Level Trough 21.9 ug/mL (5.0-12.0) H Current Medications Medications (Trade) Dose Ordered Sig/Perla Route PRN Reason Start Time Stop Time Status Last Admin Dose Admin Chlorhexidine Gluconate (Iesha-Hex 2%) 1 applic DAILY@2000 TOPIC 12/24/16 20:00 01/23/17 19:59 Dextrose/ Electrolytes 1,000 ml @ 50 mls/hr Q20H IV 12/24/16 14:00 01/23/17 13:59 Lactulose (Cephulac) 30 gm Q8H ORAL 12/23/16 20:00 01/22/17 19:59 12/24/16 12:30 Loperamide HCl (Imodium) 2 mg Q4H PRN ORAL Diarrhea 12/23/16 12:15 01/21/17 20:14 Ondansetron HCl (Zofran) 4 mg Q6H PRN IVP Nausea & Vomiting 12/23/16 10:00 01/22/17 09:59 Pantoprazole (Protonix) 40 mg BIAC IVP 12/23/16 16:30 01/22/17 16:29 12/24/16 06:07 Piperacillin Sod/ Tazobactam Sod 3.375 gm/Dextrose 110 ml @ 27.5 mls/hr Q8H IVPB 12/23/16 12:00 12/30/16 11:59 12/24/16 12:48 Rifaximin (Xifaxan) 550 mg EVERY 12 HOURS ORAL 12/23/16 21:00 12/30/16 20:59 12/24/16 09:26 Vancomycin HCl (Vanco rx to dose) 1 ea DAILY PRN MISC Per rx protocol 12/23/16 10:00 01/22/17 09:59 Vancomycin/Sodium Chloride 250 ml @ 166.667 mls/hr Q12HR@0300,1500 IVPB 12/24/16 15:00 12/29/16 14:59 Rody Quevedo M.D. Dec 24, 2016 13:27
--- NOTE | 2016-12-24 13:39 | General Progress Note ---
Assessment/Plan Problem List: (1) Encephalopathy ICD Codes: G93.40 - Encephalopathy, unspecified SNOMED: 85699633, 631045995 (2) juandice (3) Adenocarcinoma of pancreas, stage 4 ICD Codes: C25.9 - Malignant neoplasm of pancreas, unspecified SNOMED: 06362548, 527260112 (4) Sepsis ICD Codes: A41.9 - Sepsis, unspecified organism SNOMED: 12020253 (5) Upper GI bleed ICD Codes: K92.2 - Gastrointestinal hemorrhage, unspecified SNOMED: 89847639 (6) Ascites ICD Codes: R18.8 - Other ascites SNOMED: 027812783 Qualifiers: Qualified Codes: R18.8 - Other ascites (7) Anemia ICD Codes: D64.9 - Anemia, unspecified SNOMED: 678877314 Qualifiers: Qualified Codes: D64.9 - Anemia, unspecified Assessment/Plan fu H&H PRN blood transfusion poor prognosis abx vit K lactulose and xifaxan paracentesis Subjective ROS Limited/Unobtainable: No Allergies: Coded Allergies: No Known Allergies (Unverified , 12/22/16) Objective Last 24 Hour Vital Signs Date Time Temp Pulse Resp B/P (MAP) Pulse Ox O2 Delivery O2 Flow Rate FiO2 12/24/16 12:00 97.9 112 20 96/64 100 Nasal Cannula 2.0 12/24/16 08:00 97.3 118 19 105/71 99 Nasal Cannula 2.0 12/24/16 08:00 114 12/24/16 04:00 98.1 120 20 102/70 100 Room Air 2.0 12/24/16 04:00 119 12/24/16 00:27 112 26 Nasal Cannula 2.0 28 12/24/16 00:00 97.3 120 20 101/17 99 Room Air 12/24/16 00:00 121 12/24/16 00:00 97.3 20 101/77 99 Room Air 2.0 12/23/16 20:00 97.6 133 29 128/85 99 12/23/16 19:57 140 12/23/16 18:00 130 12/23/16 18:00 98.2 12/23/16 16:00 99.4 130 19 117/74 99 Nasal Cannula 2.0 Intake and Output 12/24/16 12/25/16 19:00 07:00 # Bowel Movements 1 Laboratory Tests 12/24/16 05:40: White Blood Count 13.8H, Red Blood Count 2.67L, Hemoglobin 8.2L, Hematocrit 23.8L, Mean Corpuscular Volume 89, Mean Corpuscular Hemoglobin 30.6, Mean Corpuscular Hemoglobin Concent 34.3, Red Cell Distribution Width 18.6H, Platelet Count 182, Mean Platelet Volume 6.5, Neutrophils (%) (Auto) , Lymphocytes (%) (Auto) , Monocytes (%) (Auto) , Eosinophils (%) (Auto) , Basophils (%) (Auto) , Differential Total Cells Counted 100, Neutrophils % ( Manual) 87H, Lymphocytes % (Manual) 5L, Monocytes % (Manual) 6, Eosinophils % ( Manual) 0, Basophils % (Manual) 0, Band Neutrophils 2, Platelet Estimate Adequate, Platelet Morphology Normal, Hypochromasia 2+, Anisocytosis 2+, Haptoglobin 127, Sodium Level 141, Potassium Level 3.1L, Chloride Level 101, Carbon Dioxide Level 21, Anion Gap 19H, Blood Urea Nitrogen 44H, Creatinine 1.5H , Estimat Glomerular Filtration Rate 49.1, Glucose Level 120H, Calcium Level 8.6 , Iron Level 53L, Total Iron Binding Capacity 127L, Percent Iron Saturation 42, Unsaturated Iron Binding 74L, Pro-B-Type Natriuretic Peptide 2131H, CA 19-9 Antigen 150.8H, Vitamin B12 Level > 2000H, Methylmalonic Acid [Pending], Folate [Pending], Thyroid Stimulating Hormone (TSH) 2.190 12/24/16 11:00: Vancomycin Level Trough 21.9H Height (Feet): 5 Height (Inches): 6.00 Weight (Pounds): 140 General Appearance: confused EENT: normal ENT inspection Neck: supple Cardiovascular: normal rate Respiratory/Chest: decreased breath sounds Abdomen: soft, decreased bowel sounds, tender Extremities: non-tender NIRANJAN CHOI Dec 24, 2016 13:38
--- NOTE | 2016-12-24 14:13 | Neurology Progress Note ---
Interim History Interim History ROS Limited/Unobtainable: No Objective Physical Exam Last Vital Signs Date Time Temp Pulse Resp B/P (MAP) Pulse Ox O2 Delivery O2 Flow Rate FiO2 12/24/16 12:00 97.9 112 20 96/64 100 Nasal Cannula 2.0 12/24/16 00:27 28 Laboratory Tests Test 12/24/16 05:40 12/24/16 11:00 White Blood Count 13.8 K/UL (4.8-10.8) H Red Blood Count 2.67 M/UL (4.70-6.10) L Hemoglobin 8.2 G/DL (14.2-18.0) L Hematocrit 23.8 % (42.0-52.0) L Mean Corpuscular Volume 89 FL (80-99) Mean Corpuscular Hemoglobin 30.6 PG (27.0-31.0) Mean Corpuscular Hemoglobin Concent 34.3 G/DL (32.0-36.0) Red Cell Distribution Width 18.6 % (11.6-14.8) H Platelet Count 182 K/UL (150-450) Mean Platelet Volume 6.5 FL (6.5-10.1) Neutrophils (%) (Auto) % (45.0-75.0) Lymphocytes (%) (Auto) % (20.0-45.0) Monocytes (%) (Auto) % (1.0-10.0) Eosinophils (%) (Auto) % (0.0-3.0) Basophils (%) (Auto) % (0.0-2.0) Differential Total Cells Counted 100 Neutrophils % (Manual) 87 % (45-75) H Lymphocytes % (Manual) 5 % (20-45) L Monocytes % (Manual) 6 % (1-10) Eosinophils % (Manual) 0 % (0-3) Basophils % (Manual) 0 % (0-2) Band Neutrophils 2 % (0-8) Platelet Estimate Adequate Platelet Morphology Normal Hypochromasia 2+ Anisocytosis 2+ Haptoglobin 127 mg/dL (30-200) Sodium Level 141 mEQ/L (135-145) Potassium Level 3.1 mEQ/L (3.4-4.9) L Chloride Level 101 mEQ/L (98-107) Carbon Dioxide Level 21 mEQ/L (20-30) Anion Gap 19 (5-15) H Blood Urea Nitrogen 44 mg/dL (7-23) H Creatinine 1.5 mg/dL (0.7-1.2) H Estimat Glomerular Filtration Rate 49.1 mL/min (>60) Glucose Level 120 mg/dL (74-106) H Calcium Level 8.6 mg/dL (8.6-10.2) Iron Level 53 ug/dL (59-158) L Total Iron Binding Capacity 127 ug/dL (250-400) L Percent Iron Saturation 42 % (15-50) Unsaturated Iron Binding 74 ug/dL (112-346) L Pro-B-Type Natriuretic Peptide 2131 pg/mL (0-125) H CA 19-9 Antigen 150.8 U/mL (< 37) H Vitamin B12 Level > 2000 PG/ML (193-986) H Methylmalonic Acid Pending Folate Pending Thyroid Stimulating Hormone (TSH) 2.190 uIU/mL (0.300-4.500) Vancomycin Level Trough 21.9 ug/mL (5.0-12.0) H Impression/Recommendations Recommendations # [id number] JESSIE MEDEIROS Dec 24, 2016 14:13
[2016-12-24] MEDS: D5 1/2NS w/KCl 20mEq 1,000 ML IV SCH (14:28)
[2016-12-24] MEDS ORDERED: Vancomycin 750mg/NS 250ml IVPB SCH (15:00)
[2016-12-24] MEDS ORDERED: D5 1/2NS 1000ml IV ONE (16:15)
[2016-12-24] MEDS: Dyna-Hex 2% Top Sol 2oz TOPIC SCH (19:40)
[2016-12-25 04:00] VITALS: BP 103/76
[2016-12-25] MEDS: Piperacillin/Tazobactam 3.375 GM in D5W 110 ML IVPB SCH ×3 (04:32→21:04)
[2016-12-25] MEDS: Lactulose 20gm/30ml UDC ORAL SCH (04:32)
[2016-12-25] MEDS: Pantoprazole Inj IVP SCH ×2 (06:21→18:00)
[2016-12-25 06:53] LABS: INR 1.3 (0.9-1.1); PROTHROMBIN TIME 13.4 SEC (9.30-11.50)
[2016-12-25 07:36] LABS: MEAN CORPUSCULAR HEMOGLOBIN 31.3 PG (27.0-31.0); MEAN CORPUSCULAR HGB CONC 34.9 G/DL (32.0-36.0); MEAN CORPUSCULAR VOLUME 90 FL (80-99); MEAN PLATELET VOLUME 6.6 FL (6.5-10.1); PLATELET COUNT 142 K/UL (150-450); RED BLOOD COUNT 2.59 M/UL (4.70-6.10); RED CELL DISTRIBUTION WIDTH 19.2 % (11.6-14.8); WHITE BLOOD COUNT 11.4 K/UL (4.8-10.8)
[2016-12-25 07:45] LABS: ALANINE AMINOTRANSFERASE 70 U/L (12-78); ALBUMIN/GLOBULIN RATIO 0.3 (1.0-2.7); ANION GAP 11 (5-15); ASPARTATE AMINO TRANSFERASE 242 U/L (15-37); CALCIUM 8.3 MG/DL (8.5-10.1); CARBON DIOXIDE 23 MMOL/L (21-32); CHLORIDE 105 MMOL/L (98-107); CREATININE 1.6 MG/DL (0.55-1.30); GLOMERULAR FILTRATION RATE 45.6 mL/min (>60); SODIUM 139 MMOL/L (136-145); TOTAL PROTEIN 6.8 G/DL (6.4-8.2)
[2016-12-25 08:00] VITALS: BP 131/73
[2016-12-25 08:04] LABS: POTASSIUM 2.3 MMOL/L (3.5-5.1)
--- NOTE | 2016-12-25 08:25 | Cardiology Report ---
APPROVED REPORT EXAM: Two-dimensional and M-mode echocardiogram with Doppler and color Doppler. INDICATION Congestive Heart Failure M-Mode DIMENSIONS IVSd0.6 (0.7-1.1cm)Left Atrium (MM)4.1 (1.6-4.0cm) LVDd4.9 (3.5-5.6cm)Aortic Root3.3 (2.0-3.7cm) PWd0.9 (0.7-1.1cm)Aortic Cusp Exc.1.9 (1.5-2.0cm) LVDs2.1 (2.5-4.0cm) PWs1.3 cm Technically difficult study due to poor acoustical windows. Pt breathing Normal left ventricular chamber size, systolic function and wall motion. Left ventricular ejection fraction estimated to be 60-65%. No evidence of left ventricular hypertrophy. Mild to moderate anterior and posterior pericardial. Large posterior pleural effusion. All other cardiac chamber sizes are within normal limits. Focal aortic valve sclerosis with adequate cusp excursion. Thickened mitral valve leaflets with normal excursion. Mild mitral annulus and aortic root calcification. Pulmonic valve not well visualized. Normal tricuspid valve structure. IVC is normal in size and collapsible with respiration. RA diastolic collapse is shown,possible pre-tamponade. A color flow and spectral Doppler study was performed and revealed: No aortic regurgitation. No mitral regurgitation. Mitral diastolic velocities suggest reduced left ventricular relaxation c/w diastolic dysfunction grade 1. No tricuspid regurgitation. Clinical criteria: WOODY Chacon and have been informed on 12/24/16 at 4pm
--- NOTE | 2016-12-25 09:02 | Consultation ---
DATE OF CONSULTATION: 12/23/2016 HEMATOLOGY/ONCOLOGY CONSULTATION CONSULTING PHYSICIAN: Dwayne Moe M.D. REQUESTING PHYSICIAN: Antolin Lopez M.D. REASON FOR CONSULTATION: Evaluation of pancreatic cancer. IDENTIFICATION DATA: Dear Dr. Antolin Lopez: The patient is a pleasant 51-year-old male with a past medical history significant for pancreatic cancer, presents to the ER with coffee-ground emesis, status post chemotherapy. Family was at the bedside initially, however, currently are not. The patient chemotherapy poor historian, seen at [facility]. No chest pain at this time. No nausea and no vomiting at this time. The patient noted to be . Hematology service was consulted for further evaluation and treatment coagulopathy. PAST MEDICAL HISTORY: Pancreatic cancer. ALLERGIES: No known drug allergies. MEDICATIONS: At home, cefdinir, loperamide, Zofran, and OxyContin . FAMILY HISTORY: Noncontributory. REVIEW OF SYSTEMS: A 12-point review of systems is otherwise negative. PHYSICAL EXAMINATION: VITAL SIGNS: Reviewed. GENERAL: No acute distress. PULMONARY: Decreased breath sounds. CARDIOVASCULAR: Regular rate and rhythm. No S3 or S4. ABDOMEN: Soft, nontender, and nondistended. EXTREMITIES: There is 1+ edema. LABORATORY DATA: INR 1.3, prothrombin time is 13.4 . WBC 16,000, hemoglobin 8.7, hematocrit 25, and platelets 118,000 . ASSESSMENT AND RECOMMENDATIONS: 1. Stage IV pancreatic cancer with peritoneal mass peritoneal adenopathy noted. The patient is currently getting chemotherapy at [facility] with two cycles of likely gemcitabine and cisplatin, which is the standard of care for pancreatic cancer. Nausea and vomiting associated with this and Zofran and potential dose reduction in future, we will need to discuss with outpatient oncologist. 2. Anemia secondary to upper gastrointestinal bleed. 3. Anemia, secondary to chronic disease. Anemia workup has been ordered. 4. underlying anemia with reactive process. 5. Ascites. 6. Nausea and vomiting due to chemotherapy. 7. Coagulopathy. 8. Malnutrition, vitamin K deficiency a factor. I appreciate the consultation. Dwayne Moe M.D. DR: Ekaterina JOB#: [id number] CC:
--- NOTE | 2016-12-25 09:03 | Consultation ---
DATE OF CONSULTATION: 12/24/2016 NEUROLOGIC CONSULTATION CONSULTING PHYSICIAN: Bryce Diallo M.D. REQUESTING PHYSICIAN: Antolin Lopez M.D. HISTORY OF PRESENT ILLNESS: This is a 51-year-old man, was diagnosed with pancreatic cancer stage IV with diffuse metastases to the liver and peritoneum, now seen in neurological consultation to evaluate a new onset of persistent unresponsiveness. The patient was brought to this facility after developing quite severe pain in the abdomen with abdominal distention, coffee-ground emesis x4. His vital signs on admission included hypertension with blood pressure 100/73, he was afebrile. Heart rate of 100. He was described as being awake and coherent. On admission, he was given morphine and felt much better. His EKG with normal sinus rhythm. Laboratory work included anemia with hemoglobin 8.9, hematocrit 26.1, elevated WBC 14.7, coagulopathy with INR 1.2, PT of 13.4. Urinalysis, 1+ leukocyte esterase, 1+, ketones and protein. Toxicology panel unremarkable except vancomycin 21.9. Chemistry panel included a BUN of 42, creatinine 1.1, blood sugar 124, elevated bilirubin 7.0, AST 207, ALT 53, alkaline phosphatase 431. BNP of 2131. Ammonia level 219. CA 19-9 150.8. Normal B12 and TSH. BUN of 44, creatinine 1.5. Abdominal pelvic CT revealed pancreatic mass as well as masses throughout the liver, peritoneal masses and mesenteric, retroperitoneal adenopathy, splenomegaly, few tiny nodules partially visualized at lung bases. Chest x-ray, poor inspiration, but no obvious acute cardiovascular disease. NG tube noted in the stomach, PICC line. The patient was admitted on Sunday night, he became unresponsive, was felt to be that he is asleep, but he was not awakening until present time. Stat CT of the brain was obtained, this revealed no acute intracranial abnormalities. No mass lesions. PAST MEDICAL HISTORY: Since admission, the patient was diagnosed with adenocarcinoma of pancreas stage IV, he just completed second round of chemotherapy provided by [facility]. His past medical history limited related to pancreatic cancer. MEDICATIONS: Treatment prior to admission included Cefdinir, loperamide, ondansetron, oxycodone 10 mg q.6 h. as needed, pantoprazole, and . His current treatment IV fluids and antibiotics, rifaximin, Protonix, morphine as needed, lactulose, and vitamin K. ALLERGIES: None reported. SOCIAL HISTORY: No alcohol. No drug abuse reported. The patient lives with his family. REVIEW OF SYMPTOMS: Unable to obtain due to the patient's status. PHYSICAL EXAMINATION: GENERAL: A well-developed, but very ill appearing, cachectic man, who appears to be asleep. VITAL SIGNS: Now blood pressure 96/64, heart rate of 112, afebrile. HEENT: Normocephalic. There is no evidence of trauma. Eyes, ears, and throat are clear. NECK: Rigid in all directions. MUSCULOSKELETAL: Remarkable for a very large ascites. Peripheral pulses 1+ symmetric. MENTAL STATUS: No response to voice stimulation, but on sternal rub moans, defending with left arm. CRANIAL NERVES II: Pupils 3 mm responding to light and accommodation. Extraocular movement full range. CRANIAL NERVES V: Normal corneal responses. CRANIAL NERVES VII: Mild facial asymmetry. CRANIAL NERVES VIII: Unable to test. CRANIAL NERVES IX THROUGH XII: Absent gag response. MOTOR EXAMINATION: Revealed reduced responses right upper extremity and both lower extremities. The patient was defending with left arm lifting get up and moving. No involuntary movement. Deep tendon reflexes 1+ bilaterally, appears symmetric with plantar responses are mute. SENSORY EXAMINATION: No response to pin stimulation. IMPRESSION: 1. This 51-year-old man with adenocarcinoma of bronchus stage IV status post x2 chemotherapy cycles presenting with persistent unresponsiveness. Rule out a hepatic encephalopathy, rule out a paraneoplastic meningoencephalitis. Doubt presence of seizure activities. 2. Sepsis. 3. Abnormal liver function, due to liver metastases. 4. Renal insufficiency, rule out upper gastrointestinal bleeding. RECOMMENDATION: We will continue with IV fluids, antibiotics, as well as maintaining on lactulose, avoid opiates. The patient continue with paracentesis, symptomatic treatment. The patient is a multisystem failure and has a very poor prognosis. Maintain on vitamin K supplements. At this time, additional diagnostic studies could include MRI of the brain and/or spinal tap, although the patient would be unlikely able to tolerate procedures. We will reconsider the following days. Thank you for allowing me to see this interesting patient in neurologic consultation. Bryce Yoni Diallo DR: ANGIE JOB#: [id number] CC:
[2016-12-25 09:06] LABS: BILIRUBIN,DIRECT 5.1 MG/DL (0.0-0.3)
--- NOTE | 2016-12-25 10:08 | Diagnostic Imaging Report ---
Indication: NG tube placement Comparison: None Single view of the abdomen obtained NG tube is in good position. Bowel gas pattern is nonspecific. The bones are unremarkable. Impression: No acute findings.
[2016-12-25 10:32] LABS: ANISOCYTOSIS 1+; BAND NEUTROPHILS % (MANUAL) 0 % (0-8); BASOPHILS % (MANUAL) 0 % (0-2); EOSINOPHILS % (MANUAL) 0 % (0-3); HYPOCHROMASIA 1+; LYMPHOCYTES % (MANUAL) 7 % (20-45); NEUTROPHILS % (MANUAL) 90 % (45-75); PLATELET ESTIMATE ADEQUATE; PLATELET MORPHOLOGY NORMAL; TOTAL CELLS COUNTED 100
--- NOTE | 2016-12-25 11:16 | GI Progress Note ---
Assessment/Plan Problems: (1) juandice (2) Encephalopathy ICD Codes: G93.40 - Encephalopathy, unspecified SNOMED: 69974651, 329276425 (3) Adenocarcinoma of pancreas, stage 4 ICD Codes: C25.9 - Malignant neoplasm of pancreas, unspecified SNOMED: 46454663, 859200900 (4) Upper GI bleed ICD Codes: K92.2 - Gastrointestinal hemorrhage, unspecified SNOMED: 45129071 (5) Vomiting ICD Codes: R11.10 - Vomiting, unspecified SNOMED: 982004663 Qualifiers: Qualified Codes: R11.2 - Nausea with vomiting, unspecified (6) Pancreatic mass ICD Codes: K86.9 - Disease of pancreas, unspecified SNOMED: 695881737 (7) Ascites ICD Codes: R18.8 - Other ascites SNOMED: 070905808 Qualifiers: Qualified Codes: R18.8 - Other ascites (8) Anemia ICD Codes: D64.9 - Anemia, unspecified SNOMED: 829167061 Qualifiers: Qualified Codes: D64.9 - Anemia, unspecified Status: unchanged Status Narrative Discussed with Dr. Villanueva. Assessment/Plan OB stool positive fu H&H, PRN blood transfusion poor prognosis abx lactulose and xifaxan paracentesis prn fu labs Subjective Subjective limited Objective Last 24 Hour Vital Signs Date Time Temp Pulse Resp B/P (MAP) Pulse Ox O2 Delivery O2 Flow Rate FiO2 12/25/16 08:00 97.8 102 20 131/73 100 Nasal Cannula 2.0 12/25/16 04:00 104 12/25/16 04:00 97.3 101 20 103/76 Nasal Cannula 2.0 12/25/16 00:00 109 12/24/16 23:55 97.7 116 20 102/66 Nasal Cannula 2.0 12/24/16 20:00 102 12/24/16 20:00 97.8 114 28 100/64 Nasal Cannula 2.0 12/24/16 19:00 107 26 Nasal Cannula 2.0 28 12/24/16 19:00 99 Nasal Cannula 2.0 28 12/24/16 19:00 Nasal Cannula 2.0 28 12/24/16 16:45 97.4 102 18 101/66 Nasal Cannula 2.0 12/24/16 16:00 105 12/24/16 12:00 114 12/24/16 12:00 97.9 112 20 96/64 100 Nasal Cannula 2.0 Laboratory Tests Test 12/24/16 11:30 12/25/16 06:00 Stool Occult Blood Positive (NEGATIVE) White Blood Count 11.4 K/UL (4.8-10.8) H Red Blood Count 2.59 M/UL (4.70-6.10) L Hemoglobin 8.1 G/DL (14.2-18.0) L Hematocrit 23.2 % (42.0-52.0) L Mean Corpuscular Volume 90 FL (80-99) Mean Corpuscular Hemoglobin 31.3 PG (27.0-31.0) H Mean Corpuscular Hemoglobin Concent 34.9 G/DL (32.0-36.0) Red Cell Distribution Width 19.2 % (11.6-14.8) H Platelet Count 142 K/UL (150-450) L Mean Platelet Volume 6.6 FL (6.5-10.1) Neutrophils (%) (Auto) % (45.0-75.0) Lymphocytes (%) (Auto) % (20.0-45.0) Monocytes (%) (Auto) % (1.0-10.0) Eosinophils (%) (Auto) % (0.0-3.0) Basophils (%) (Auto) % (0.0-2.0) Differential Total Cells Counted 100 Neutrophils % (Manual) 90 % (45-75) H Lymphocytes % (Manual) 7 % (20-45) L Monocytes % (Manual) 3 % (1-10) Eosinophils % (Manual) 0 % (0-3) Basophils % (Manual) 0 % (0-2) Band Neutrophils 0 % (0-8) Platelet Estimate Adequate Platelet Morphology Normal Hypochromasia 1+ Anisocytosis 1+ Prothrombin Time 13.4 SEC (9.30-11.50) H Prothromb Time International Ratio 1.3 (0.9-1.1) H Sodium Level 139 MMOL/L (136-145) Potassium Level 2.3 MMOL/L (3.5-5.1) *L Chloride Level 105 MMOL/L (98-107) Carbon Dioxide Level 23 MMOL/L (21-32) Anion Gap 11 (5-15) Blood Urea Nitrogen 40 mg/dL (7-18) H Creatinine 1.6 MG/DL (0.55-1.30) H Estimat Glomerular Filtration Rate 45.6 mL/min (>60) Glucose Level 118 MG/DL (74-106) H Calcium Level 8.3 MG/DL (8.5-10.1) L Total Bilirubin 6.3 MG/DL (0.2-1.0) H Direct Bilirubin 5.1 MG/DL (0.0-0.3) H Aspartate Amino Transf (AST/SGOT) 242 U/L (15-37) H Alanine Aminotransferase (ALT/SGPT) 70 U/L (12-78) Alkaline Phosphatase 438 U/L (46-116) H Ammonia 14 umol/L (11.2-31.7) Total Protein 6.8 G/DL (6.4-8.2) Albumin 1.6 G/DL (3.4-5.0) L Globulin 5.2 g/dL Albumin/Globulin Ratio 0.3 (1.0-2.7) L Height (Feet): 5 Height (Inches): 6.00 Weight (Pounds): 140 General Appearance: no apparent distress, alert Cardiovascular: normal rate Respiratory/Chest: normal breath sounds, no respiratory distress, other - 2LNC Abdominal Exam: soft Lakia Vallejo NLisa Dec 25, 2016 11:16
[2016-12-25] MEDS: D5 1/2NS w/KCl 20mEq 1,000 ML IV SCH (11:53)
[2016-12-25 12:00] VITALS: BP 120/75
[2016-12-25] MEDS ORDERED: NS 275ml ONE (14:12)
[2016-12-25] MEDS ORDERED: NS 500ML IV ONE (14:12)
--- NOTE | 2016-12-25 15:43 | Infectious Diseases Prog Note ---
Assessment/Plan Problems: (1) Sepsis Assessment & Plan: unclear source , rule out peritonitis , VS bacteremia , recommend paracentesis and fluids to be sent for culture , continue zosyn empirically, pending further culture results (2) Ascites Assessment & Plan: due to liver mets, and infiltrated peritoan, recommend paracentesis to rule out infection , GI and renal are following (3) Upper GI bleed Assessment & Plan: monitor H/H, transfuse as needed, may need EGD, GI is following (4) IMELDA (acute kidney injury) Assessment & Plan: due to the above, avoid nephrotoxic meds, monitor renal function, nephrology is following, will stop vancomycin (5) Adenocarcinoma of pancreas, stage 4 Assessment & Plan: S/P CHEMO X2, recommend oncology consult for further eval and management (6) Poor prognosis Assessment & Plan: with advanced pancreatic cancer and mets, on palliative chemo, follow up with oncology Subjective Constitutional: Reports: no symptoms HEENT: Reports: no symptoms Respiratory: Reports: no symptoms Breasts: Reports: no symptoms Cardiovascular: Reports: no symptoms Gastrointestinal/Abdominal: Reports: diarrhea, bloating Genitourinary: Reports: no symptoms Neurologic: Reports: no symptoms Psychiatric: Reports: no symptoms Skin: Reports: no symptoms Endocrine: Reports: no symptoms Allergies: Coded Allergies: No Known Allergies (Unverified , 12/22/16) Subjective he is still altered, unresponsive, has coffe ground emesis in his NGT Objective Vital Signs Last 24 Hour Vital Signs Date Time Temp Pulse Resp B/P (MAP) Pulse Ox O2 Delivery O2 Flow Rate FiO2 12/25/16 12:00 97.7 95 18 120/75 100 Nasal Cannula 2.0 12/25/16 08:00 97.8 102 20 131/73 100 Nasal Cannula 2.0 12/25/16 04:00 104 12/25/16 04:00 97.3 101 20 103/76 Nasal Cannula 2.0 12/25/16 00:00 109 12/24/16 23:55 97.7 116 20 102/66 Nasal Cannula 2.0 12/24/16 20:00 102 12/24/16 20:00 97.8 114 28 100/64 Nasal Cannula 2.0 12/24/16 19:00 107 26 Nasal Cannula 2.0 28 12/24/16 19:00 99 Nasal Cannula 2.0 28 12/24/16 19:00 Nasal Cannula 2.0 28 12/24/16 16:45 97.4 102 18 101/66 Nasal Cannula 2.0 12/24/16 16:00 105 Height (Feet): 5 Height (Inches): 6.00 Weight (Pounds): 140 General Appearance: WD/WN, no acute distress HEENT: normocephalic, atraumatic, mucous membranes moist, PERRL, supple, no JVD Respiratory/Chest: chest wall non-tender, lungs clear, normal breath sounds, no respiratory distress, no accessory muscle use Cardiovascular: normal peripheral pulses, normal rate, regular rhythm, no gallop/murmur, no JVD Abdomen: normal bowel sounds, soft, non tender, no mass, no scars, absent bowel sounds, distended Extremities: no cyanosis, no clubbing Skin: no rash, no lesions Laboratory Tests Test 12/25/16 06:00 White Blood Count 11.4 K/UL (4.8-10.8) H Red Blood Count 2.59 M/UL (4.70-6.10) L Hemoglobin 8.1 G/DL (14.2-18.0) L Hematocrit 23.2 % (42.0-52.0) L Mean Corpuscular Volume 90 FL (80-99) Mean Corpuscular Hemoglobin 31.3 PG (27.0-31.0) H Mean Corpuscular Hemoglobin Concent 34.9 G/DL (32.0-36.0) Red Cell Distribution Width 19.2 % (11.6-14.8) H Platelet Count 142 K/UL (150-450) L Mean Platelet Volume 6.6 FL (6.5-10.1) Neutrophils (%) (Auto) % (45.0-75.0) Lymphocytes (%) (Auto) % (20.0-45.0) Monocytes (%) (Auto) % (1.0-10.0) Eosinophils (%) (Auto) % (0.0-3.0) Basophils (%) (Auto) % (0.0-2.0) Differential Total Cells Counted 100 Neutrophils % (Manual) 90 % (45-75) H Lymphocytes % (Manual) 7 % (20-45) L Monocytes % (Manual) 3 % (1-10) Eosinophils % (Manual) 0 % (0-3) Basophils % (Manual) 0 % (0-2) Band Neutrophils 0 % (0-8) Platelet Estimate Adequate Platelet Morphology Normal Hypochromasia 1+ Anisocytosis 1+ Prothrombin Time 13.4 SEC (9.30-11.50) H Prothromb Time International Ratio 1.3 (0.9-1.1) H Sodium Level 139 MMOL/L (136-145) Potassium Level 2.3 MMOL/L (3.5-5.1) *L Chloride Level 105 MMOL/L (98-107) Carbon Dioxide Level 23 MMOL/L (21-32) Anion Gap 11 (5-15) Blood Urea Nitrogen 40 mg/dL (7-18) H Creatinine 1.6 MG/DL (0.55-1.30) H Estimat Glomerular Filtration Rate 45.6 mL/min (>60) Glucose Level 118 MG/DL (74-106) H Calcium Level 8.3 MG/DL (8.5-10.1) L Total Bilirubin 6.3 MG/DL (0.2-1.0) H Direct Bilirubin 5.1 MG/DL (0.0-0.3) H Aspartate Amino Transf (AST/SGOT) 242 U/L (15-37) H Alanine Aminotransferase (ALT/SGPT) 70 U/L (12-78) Alkaline Phosphatase 438 U/L (46-116) H Ammonia 14 umol/L (11.2-31.7) Total Protein 6.8 G/DL (6.4-8.2) Albumin 1.6 G/DL (3.4-5.0) L Globulin 5.2 g/dL Albumin/Globulin Ratio 0.3 (1.0-2.7) L Current Medications Medications (Trade) Dose Ordered Sig/Perla Route PRN Reason Start Time Stop Time Status Last Admin Dose Admin Chlorhexidine Gluconate (Iesha-Hex 2%) 1 applic DAILY@1999 TOPIC 12/24/16 20:00 01/23/17 19:59 12/24/16 19:40 Dextrose/ Electrolytes 1,000 ml @ 50 mls/hr Q20H IV 12/24/16 14:00 01/23/17 13:59 12/25/16 11:53 Loperamide HCl (Imodium) 2 mg Q4H PRN ORAL Diarrhea 12/23/16 12:15 01/21/17 20:14 Ondansetron HCl (Zofran) 4 mg Q6H PRN IVP Nausea & Vomiting 12/23/16 10:00 01/22/17 09:59 Pantoprazole (Protonix) 40 mg BIAC IVP 12/23/16 16:30 01/22/17 16:29 12/25/16 06:21 Piperacillin Sod/ Tazobactam Sod 3.375 gm/Dextrose 110 ml @ 27.5 mls/hr Q8H IVPB 12/23/16 12:00 12/30/16 11:59 12/25/16 11:53 Potassium Chloride 100 ml @ 100 mls/hr Q1HR IVPB 12/25/16 14:00 12/25/16 16:59 12/25/16 15:03 Rifaximin (Xifaxan) 550 mg EVERY 12 HOURS ORAL 12/23/16 21:00 12/30/16 20:59 12/25/16 11:53 Rody Quevedo M.D. Dec 25, 2016 15:43
[2016-12-25 16:00] VITALS: BP 138/76
--- NOTE | 2016-12-25 16:12 | Nephrology Progress Note ---
Assessment/Plan Problem List: (1) Anemia (2) Ascites (3) Vomiting (4) Pancreatic mass (5) Upper GI bleed (6) Sepsis (7) IMELDA (acute kidney injury) (8) Adenocarcinoma of pancreas, stage [address] head - negative onco following Cardio following GI following Replace potassium Monitor H&H. Transfuse prn Schedule paracentesis per rec Continue NGT Obtain medical records from [facility] Monitor renal function, we'll avoid nephrotoxins Abx per ID Monitor Lytes - replace prn Monitor neuro status Poor prognosis AM labs Subjective Constitutional: Reports: weakness HEENT: Denies: no symptoms, eye pain, blurred vision, tearing, double vision, ear pain, ear discharge, nose pain, nose congestion, throat pain, throat swelling, mouth pain, mouth swelling, other Genitourinary: Denies: no symptoms, burning, discharge, frequency, flank pain, hematuria, incontinence, pain, urgency, other Neurologic/Psychiatric: Reports: weakness Subjective In bed, alert and oriented, lethargic, in no apparent distress. Objective Objective Last 24 Hour Vital Signs Date Time Temp Pulse Resp B/P (MAP) Pulse Ox O2 Delivery O2 Flow Rate FiO2 12/25/16 12:00 97.7 95 18 120/75 100 Nasal Cannula 2.0 12/25/16 08:00 97.8 102 20 131/73 100 Nasal Cannula 2.0 12/25/16 04:00 104 12/25/16 04:00 97.3 101 20 103/76 Nasal Cannula 2.0 12/25/16 00:00 109 12/24/16 23:55 97.7 116 20 102/66 Nasal Cannula 2.0 12/24/16 20:00 102 12/24/16 20:00 97.8 114 28 100/64 Nasal Cannula 2.0 12/24/16 19:00 107 26 Nasal Cannula 2.0 28 12/24/16 19:00 99 Nasal Cannula 2.0 28 12/24/16 19:00 Nasal Cannula 2.0 28 12/24/16 16:45 97.4 102 18 101/66 Nasal Cannula 2.0 Laboratory Tests 12/25/16 06:00: White Blood Count 11.4H, Red Blood Count 2.59L, Hemoglobin 8.1L, Hematocrit 23.2L, Mean Corpuscular Volume 90, Mean Corpuscular Hemoglobin 31.3H, Mean Corpuscular Hemoglobin Concent 34.9, Red Cell Distribution Width 19.2H, Platelet Count 142L, Mean Platelet Volume 6.6, Neutrophils (%) (Auto) , Lymphocytes (%) (Auto) , Monocytes (%) (Auto) , Eosinophils (%) (Auto) , Basophils (%) (Auto) , Differential Total Cells Counted 100, Neutrophils % ( Manual) 90H, Lymphocytes % (Manual) 7L, Monocytes % (Manual) 3, Eosinophils % ( Manual) 0, Basophils % (Manual) 0, Band Neutrophils 0, Platelet Estimate Adequate, Platelet Morphology Normal, Hypochromasia 1+, Anisocytosis 1+, Prothrombin Time 13.4H, Prothromb Time International Ratio 1.3H, Sodium Level 139, Potassium Level 2.3*L, Chloride Level 105, Carbon Dioxide Level 23, Anion Gap 11, Blood Urea Nitrogen 40H, Creatinine 1.6H, Estimat Glomerular Filtration Rate 45.6, Glucose Level 118H, Calcium Level 8.3L, Total Bilirubin 6.3H, Direct Bilirubin 5.1H, Aspartate Amino Transf (AST/SGOT) 242H, Alanine Aminotransferase (ALT/SGPT) 70, Alkaline Phosphatase 438H, Ammonia 14, Total Protein 6.8, Albumin 1.6L, Globulin 5.2, Albumin/Globulin Ratio 0.3L Height (Feet): 5 Height (Inches): 6.00 Weight (Pounds): 140 General Appearance: no apparent distress, alert EENT: scleral icterus Neck: non-tender, supple Cardiovascular: normal rate, regular rhythm, no JVD Respiratory/Chest: decreased breath sounds Abdomen: distended, hepatomegaly Extremities: moderate edema Neurologic: alert, responsive, motor weakness Roro Cortés N.P. Dec 25, 2016 16:12
--- NOTE | 2016-12-25 16:23 | Cardiac Electrophysiology PN ---
Assessment/Plan Assessment/Plan 1. Sinus Tachycardia due to hepatic encephalopathy and sepsis. No evidence of atrial fibrillation. 2. Coffee-ground emesis in a patient with history of pancreatic cancer, on Xifaxan and lactulose, Protonix, antibiotics vancomycin and Zosyn. Further evaluation by Dr. Villanueva. Paracentesis in am. 3. Anemia, gastrointestinal bleed. 4. Hyponatremia. Subjective Subjective Paracentesis was rescheduled for tomorrow.Family at bedside. Still getting NG Lactulose. Objective Last 24 Hour Vital Signs Date Time Temp Pulse Resp B/P (MAP) Pulse Ox O2 Delivery O2 Flow Rate FiO2 12/25/16 12:00 97.7 95 18 120/75 100 Nasal Cannula 2.0 12/25/16 08:00 97.8 102 20 131/73 100 Nasal Cannula 2.0 12/25/16 04:00 104 12/25/16 04:00 97.3 101 20 103/76 Nasal Cannula 2.0 12/25/16 00:00 109 12/24/16 23:55 97.7 116 20 102/66 Nasal Cannula 2.0 12/24/16 20:00 102 12/24/16 20:00 97.8 114 28 100/64 Nasal Cannula 2.0 12/24/16 19:00 107 26 Nasal Cannula 2.0 28 12/24/16 19:00 99 Nasal Cannula 2.0 28 12/24/16 19:00 Nasal Cannula 2.0 28 12/24/16 16:45 97.4 102 18 101/66 Nasal Cannula 2.0 Laboratory Tests Test 12/25/16 06:00 White Blood Count 11.4 K/UL (4.8-10.8) H Red Blood Count 2.59 M/UL (4.70-6.10) L Hemoglobin 8.1 G/DL (14.2-18.0) L Hematocrit 23.2 % (42.0-52.0) L Mean Corpuscular Volume 90 FL (80-99) Mean Corpuscular Hemoglobin 31.3 PG (27.0-31.0) H Mean Corpuscular Hemoglobin Concent 34.9 G/DL (32.0-36.0) Red Cell Distribution Width 19.2 % (11.6-14.8) H Platelet Count 142 K/UL (150-450) L Mean Platelet Volume 6.6 FL (6.5-10.1) Neutrophils (%) (Auto) % (45.0-75.0) Lymphocytes (%) (Auto) % (20.0-45.0) Monocytes (%) (Auto) % (1.0-10.0) Eosinophils (%) (Auto) % (0.0-3.0) Basophils (%) (Auto) % (0.0-2.0) Differential Total Cells Counted 100 Neutrophils % (Manual) 90 % (45-75) H Lymphocytes % (Manual) 7 % (20-45) L Monocytes % (Manual) 3 % (1-10) Eosinophils % (Manual) 0 % (0-3) Basophils % (Manual) 0 % (0-2) Band Neutrophils 0 % (0-8) Platelet Estimate Adequate Platelet Morphology Normal Hypochromasia 1+ Anisocytosis 1+ Prothrombin Time 13.4 SEC (9.30-11.50) H Prothromb Time International Ratio 1.3 (0.9-1.1) H Sodium Level 139 MMOL/L (136-145) Potassium Level 2.3 MMOL/L (3.5-5.1) *L Chloride Level 105 MMOL/L (98-107) Carbon Dioxide Level 23 MMOL/L (21-32) Anion Gap 11 (5-15) Blood Urea Nitrogen 40 mg/dL (7-18) H Creatinine 1.6 MG/DL (0.55-1.30) H Estimat Glomerular Filtration Rate 45.6 mL/min (>60) Glucose Level 118 MG/DL (74-106) H Calcium Level 8.3 MG/DL (8.5-10.1) L Total Bilirubin 6.3 MG/DL (0.2-1.0) H Direct Bilirubin 5.1 MG/DL (0.0-0.3) H Aspartate Amino Transf (AST/SGOT) 242 U/L (15-37) H Alanine Aminotransferase (ALT/SGPT) 70 U/L (12-78) Alkaline Phosphatase 438 U/L (46-116) H Ammonia 14 umol/L (11.2-31.7) Total Protein 6.8 G/DL (6.4-8.2) Albumin 1.6 G/DL (3.4-5.0) L Globulin 5.2 g/dL Albumin/Globulin Ratio 0.3 (1.0-2.7) L Objective Head and Neck: Positive JVD with an NG tube LUNGS: Decreased breath sounds. CARDIOVASCULAR: Tachycardic. S1 and S2. ABDOMEN: Distended. EXTREMITIES: 2+ pitting edema. MELBA IBRAHIM Dec 25, 2016 16:23
[2016-12-25 20:00] VITALS: BP 130/87
[2016-12-25] MEDS: Dyna-Hex 2% Top Sol 2oz TOPIC SCH (21:04)
--- NOTE | 2016-12-25 22:38 | General Progress Note ---
Assessment/Plan Assessment/Plan ASSESSMENT AND RECOMMENDATIONS: 1. 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 The patient is currently getting chemotherapy at [facility]. 2. Anemia secondary to upper gastrointestinal bleed. 3. Anemia, secondary to chronic disease. Anemia workup has been ordered. 4. Underlying anemia with reactive process. 5. Ascites. 6. Nausea and vomiting due to chemotherapy. 7. Coagulopathy. 8. Malnutrition, vitamin K deficiency a factor. Subjective Date patient seen: Dec 24, 2016 Constitutional: Reports: no symptoms HEENT: Reports: no symptoms Cardiovascular: Reports: no symptoms Respiratory: Reports: no symptoms Gastrointestinal/Abdominal: Reports: no symptoms Genitourinary: Reports: no symptoms Neurologic/Psychiatric: Reports: no symptoms Endocrine: Reports: no symptoms Hematologic/Lymphatic: Reports: no symptoms Allergies: Coded Allergies: No Known Allergies (Unverified , 12/22/16) Objective Last 24 Hour Vital Signs Date Time Temp Pulse Resp B/P (MAP) Pulse Ox O2 Delivery O2 Flow Rate FiO2 12/25/16 20:00 96.7 103 24 130/87 100 Nasal Cannula 2.0 12/25/16 16:00 97.3 95 20 138/76 100 Nasal Cannula 2.0 12/25/16 16:00 100 12/25/16 12:00 96 12/25/16 12:00 97.7 95 18 120/75 100 Nasal Cannula 2.0 12/25/16 08:00 97 12/25/16 08:00 97.8 102 20 131/73 100 Nasal Cannula 2.0 12/25/16 04:00 104 12/25/16 04:00 97.3 101 20 103/76 Nasal Cannula 2.0 12/25/16 00:00 109 12/24/16 23:55 97.7 116 20 102/66 Nasal Cannula 2.0 Intake and Output 12/25/16 12/26/16 19:00 07:00 Output Total 350 ml Balance -350 ml Output Urine Total 350 ml # Bowel Movements 4 Laboratory Tests 12/25/16 06:00: White Blood Count 11.4H, Red Blood Count 2.59L, Hemoglobin 8.1L, Hematocrit 23.2L, Mean Corpuscular Volume 90, Mean Corpuscular Hemoglobin 31.3H, Mean Corpuscular Hemoglobin Concent 34.9, Red Cell Distribution Width 19.2H, Platelet Count 142L, Mean Platelet Volume 6.6, Neutrophils (%) (Auto) , Lymphocytes (%) (Auto) , Monocytes (%) (Auto) , Eosinophils (%) (Auto) , Basophils (%) (Auto) , Differential Total Cells Counted 100, Neutrophils % ( Manual) 90H, Lymphocytes % (Manual) 7L, Monocytes % (Manual) 3, Eosinophils % ( Manual) 0, Basophils % (Manual) 0, Band Neutrophils 0, Platelet Estimate Adequate, Platelet Morphology Normal, Hypochromasia 1+, Anisocytosis 1+, Prothrombin Time 13.4H, Prothromb Time International Ratio 1.3H, Sodium Level 139, Potassium Level 2.3*L, Chloride Level 105, Carbon Dioxide Level 23, Anion Gap 11, Blood Urea Nitrogen 40H, Creatinine 1.6H, Estimat Glomerular Filtration Rate 45.6, Glucose Level 118H, Calcium Level 8.3L, Total Bilirubin 6.3H, Direct Bilirubin 5.1H, Aspartate Amino Transf (AST/SGOT) 242H, Alanine Aminotransferase (ALT/SGPT) 70, Alkaline Phosphatase 438H, Ammonia 14, Total Protein 6.8, Albumin 1.6L, Globulin 5.2, Albumin/Globulin Ratio 0.3L Height (Feet): 5 Height (Inches): 6.00 Weight (Pounds): 140 General Appearance: no apparent distress EENT: normal ENT inspection Neck: normal inspection Cardiovascular: regular rhythm Skin: warm/dry Dwayne Moe Dec 25, 2016 22:38
--- NOTE | 2016-12-25 22:41 | General Progress Note ---
Assessment/Plan Assessment/Plan ASSESSMENT AND RECOMMENDATIONS: 1. 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 The patient is currently getting chemotherapy at [facility]. 2. Anemia secondary to upper gastrointestinal bleed. 3. Anemia, secondary to chronic disease. Anemia workup has been ordered and reviewed --> transfuse if drops below 7 4. Sepsis. ID following 5. Ascites. PRN paracentesis 6. Nausea and vomiting due to chemotherapy. 7. Coagulopathy. 8. Malnutrition, vitamin K deficiency a factor. Subjective Constitutional: Reports: no symptoms HEENT: Reports: no symptoms Cardiovascular: Reports: no symptoms Respiratory: Reports: no symptoms Gastrointestinal/Abdominal: Reports: no symptoms Genitourinary: Reports: no symptoms Neurologic/Psychiatric: Reports: no symptoms Endocrine: Reports: no symptoms Hematologic/Lymphatic: Reports: no symptoms Allergies: Coded Allergies: No Known Allergies (Unverified , 12/22/16) Objective Last 24 Hour Vital Signs Date Time Temp Pulse Resp B/P (MAP) Pulse Ox O2 Delivery O2 Flow Rate FiO2 12/25/16 20:00 96.7 103 24 130/87 100 Nasal Cannula 2.0 12/25/16 16:00 97.3 95 20 138/76 100 Nasal Cannula 2.0 12/25/16 16:00 100 12/25/16 12:00 96 12/25/16 12:00 97.7 95 18 120/75 100 Nasal Cannula 2.0 12/25/16 08:00 97 12/25/16 08:00 97.8 102 20 131/73 100 Nasal Cannula 2.0 12/25/16 04:00 104 12/25/16 04:00 97.3 101 20 103/76 Nasal Cannula 2.0 12/25/16 00:00 109 12/24/16 23:55 97.7 116 20 102/66 Nasal Cannula 2.0 Intake and Output 12/25/16 12/26/16 19:00 07:00 Output Total 350 ml Balance -350 ml Output Urine Total 350 ml # Bowel Movements 4 Laboratory Tests 12/25/16 06:00: White Blood Count 11.4H, Red Blood Count 2.59L, Hemoglobin 8.1L, Hematocrit 23.2L, Mean Corpuscular Volume 90, Mean Corpuscular Hemoglobin 31.3H, Mean Corpuscular Hemoglobin Concent 34.9, Red Cell Distribution Width 19.2H, Platelet Count 142L, Mean Platelet Volume 6.6, Neutrophils (%) (Auto) , Lymphocytes (%) (Auto) , Monocytes (%) (Auto) , Eosinophils (%) (Auto) , Basophils (%) (Auto) , Differential Total Cells Counted 100, Neutrophils % ( Manual) 90H, Lymphocytes % (Manual) 7L, Monocytes % (Manual) 3, Eosinophils % ( Manual) 0, Basophils % (Manual) 0, Band Neutrophils 0, Platelet Estimate Adequate, Platelet Morphology Normal, Hypochromasia 1+, Anisocytosis 1+, Prothrombin Time 13.4H, Prothromb Time International Ratio 1.3H, Sodium Level 139, Potassium Level 2.3*L, Chloride Level 105, Carbon Dioxide Level 23, Anion Gap 11, Blood Urea Nitrogen 40H, Creatinine 1.6H, Estimat Glomerular Filtration Rate 45.6, Glucose Level 118H, Calcium Level 8.3L, Total Bilirubin 6.3H, Direct Bilirubin 5.1H, Aspartate Amino Transf (AST/SGOT) 242H, Alanine Aminotransferase (ALT/SGPT) 70, Alkaline Phosphatase 438H, Ammonia 14, Total Protein 6.8, Albumin 1.6L, Globulin 5.2, Albumin/Globulin Ratio 0.3L Height (Feet): 5 Height (Inches): 6.00 Weight (Pounds): 140 EENT: PERRL/EOMI Neck: non-tender Cardiovascular: no gallop/murmur Abdomen: distended Dwayne Moe Dec 25, 2016 22:41
[2016-12-26] VITALS: BP 139/68
[2016-12-26 04:00] VITALS: BP 122/77
[2016-12-26] MEDS: Piperacillin/Tazobactam 3.375 GM in D5W 110 ML IVPB SCH ×3 (04:00→20:37)
[2016-12-26] MEDS: D5 1/2NS w/KCl 20mEq 1,000 ML IV SCH (06:14)
[2016-12-26] MEDS: Pantoprazole Inj IVP SCH ×2 (06:14→16:33)
[2016-12-26 06:26] LABS: BASOPHILS % (AUTO) 0.5 % (0.0-2.0); EOSINOPHILS % (AUTO) 1.2 % (0.0-3.0); LYMPHOCYTES % (AUTO) 7.6 % (20.0-45.0); MEAN CORPUSCULAR HGB CONC 34.3 G/DL (32.0-36.0); MEAN CORPUSCULAR VOLUME 93 FL (80-99); MEAN PLATELET VOLUME 6.9 FL (6.5-10.1); MONOCYTES % (AUTO) 6.7 % (1.0-10.0); NEUTROPHILS % (AUTO) 83.9 % (45.0-75.0); PLATELET COUNT 161 K/UL (150-450); RED BLOOD COUNT 2.66 M/UL (4.70-6.10); RED CELL DISTRIBUTION WIDTH 19.9 % (11.6-14.8); WHITE BLOOD COUNT 9.3 K/UL (4.8-10.8)
[2016-12-26 06:43] LABS: ANION GAP 12 (5-15); CALCIUM 8.7 MG/DL (8.5-10.1); CARBON DIOXIDE 23 MMOL/L (21-32); CHLORIDE 109 MMOL/L (98-107); CREATININE 1.4 MG/DL (0.55-1.30); GLOMERULAR FILTRATION RATE 53.2 mL/min (>60); SODIUM 144 MMOL/L (136-145)
[2016-12-26 07:01] LABS: POTASSIUM 2.7 MMOL/L (3.5-5.1)
[2016-12-26 08:00] VITALS: BP 126/70
[2016-12-26] MEDS: D5 1/2NS w/KCl 40meq 1000ml 1,000 ML IV SCH (10:53)
[2016-12-26 12:00] VITALS: BP 120/76
--- NOTE | 2016-12-26 15:00 | GI Progress Note ---
Assessment/Plan Problems: (1) juandice (2) Encephalopathy ICD Codes: G93.40 - Encephalopathy, unspecified SNOMED: 28615623, 142663255 (3) Adenocarcinoma of pancreas, stage 4 ICD Codes: C25.9 - Malignant neoplasm of pancreas, unspecified SNOMED: 53110158, 889795632 (4) Upper GI bleed ICD Codes: K92.2 - Gastrointestinal hemorrhage, unspecified SNOMED: 25776372 (5) Vomiting ICD Codes: R11.10 - Vomiting, unspecified SNOMED: 401773667 Qualifiers: Qualified Codes: R11.2 - Nausea with vomiting, unspecified (6) Pancreatic mass ICD Codes: K86.9 - Disease of pancreas, unspecified SNOMED: 340429413 (7) Ascites ICD Codes: R18.8 - Other ascites SNOMED: 879264604 Qualifiers: Qualified Codes: R18.8 - Other ascites (8) Anemia ICD Codes: D64.9 - Anemia, unspecified SNOMED: 203613940 Qualifiers: Qualified Codes: D64.9 - Anemia, unspecified Status: progressing, unchanged Status Narrative Discussed with Dr. Villanueva. Assessment/Plan OB stool positive monitor H&H, PRN blood transfusion poor prognosis abx lactulose and xifaxan paracentesis cancelled today due to hypokalemia electrolyte correction fu labs Subjective Subjective limited Objective Last 24 Hour Vital Signs Date Time Temp Pulse Resp B/P (MAP) Pulse Ox O2 Delivery O2 Flow Rate FiO2 12/26/16 12:00 97.3 103 20 120/76 100 Nasal Cannula 2.0 12/26/16 11:37 97 12/26/16 08:00 97.7 99 20 126/70 100 Nasal Cannula 2.0 12/26/16 08:00 97 12/26/16 07:26 Nasal Cannula 2.0 28 12/26/16 07:25 98 Nasal Cannula 2.0 28 12/26/16 04:00 108 12/26/16 04:00 97.9 97 20 122/77 99 Nasal Cannula 2.0 12/26/16 00:00 97.9 103 20 139/68 99 Nasal Cannula 2.0 12/25/16 23:45 104 12/25/16 20:00 96.7 103 24 130/87 100 Nasal Cannula 2.0 12/25/16 19:50 110 12/25/16 19:00 Nasal Cannula 2.0 28 12/25/16 19:00 98 Nasal Cannula 2.0 28 12/25/16 16:00 97.3 95 20 138/76 100 Nasal Cannula 2.0 12/25/16 16:00 100 Intake and Output 12/26/16 12/27/16 19:00 07:00 Intake Total 277.5 ml Balance 277.5 ml IV Total 277.5 ml Laboratory Tests Test 12/26/16 04:30 White Blood Count 9.3 K/UL (4.8-10.8) Red Blood Count 2.66 M/UL (4.70-6.10) L Hemoglobin 8.5 G/DL (14.2-18.0) L Hematocrit 24.8 % (42.0-52.0) L Mean Corpuscular Volume 93 FL (80-99) Mean Corpuscular Hemoglobin 32.0 PG (27.0-31.0) H Mean Corpuscular Hemoglobin Concent 34.3 G/DL (32.0-36.0) Red Cell Distribution Width 19.9 % (11.6-14.8) H Platelet Count 161 K/UL (150-450) Mean Platelet Volume 6.9 FL (6.5-10.1) Neutrophils (%) (Auto) 83.9 % (45.0-75.0) H Lymphocytes (%) (Auto) 7.6 % (20.0-45.0) L Monocytes (%) (Auto) 6.7 % (1.0-10.0) Eosinophils (%) (Auto) 1.2 % (0.0-3.0) Basophils (%) (Auto) 0.5 % (0.0-2.0) Sodium Level 144 MMOL/L (136-145) Potassium Level 2.7 MMOL/L (3.5-5.1) *L Chloride Level 109 MMOL/L (98-107) H Carbon Dioxide Level 23 MMOL/L (21-32) Anion Gap 12 (5-15) Blood Urea Nitrogen 35 mg/dL (7-18) H Creatinine 1.4 MG/DL (0.55-1.30) H Estimat Glomerular Filtration Rate 53.2 mL/min (>60) Glucose Level 97 MG/DL (74-106) Calcium Level 8.7 MG/DL (8.5-10.1) Height (Feet): 5 Height (Inches): 5.00 Weight (Pounds): 138 General Appearance: no apparent distress, alert Cardiovascular: normal rate Respiratory/Chest: normal breath sounds, no respiratory distress Abdominal Exam: distended Lakia Vallejo N.P. Dec 26, 2016 15:00
--- NOTE | 2016-12-26 15:34 | Infectious Diseases Prog Note ---
Assessment/Plan Problems: (1) Sepsis Assessment & Plan: unclear source , improved , needs to rule out peritonitis , recommend paracentesis and fluids to be sent for culture , will stop zosyn empirically since he recieved five days of antibiotics (2) Ascites Assessment & Plan: due to liver mets, and infiltrated peritoan, recommend paracentesis to rule out infection , GI and renal are following (3) Upper GI bleed Assessment & Plan: improving , monitor H/H, transfuse as needed, may need EGD, GI is following (4) IMELDA (acute kidney injury) Assessment & Plan: due to the above, avoid nephrotoxic meds, monitor renal function, nephrology is following (5) Adenocarcinoma of pancreas, stage 4 Assessment & Plan: S/P CHEMO X2, follow up with oncology for further eval and management (6) Poor prognosis Assessment & Plan: with advanced pancreatic cancer and mets, on palliative chemo, follow up with oncology Subjective Constitutional: Reports: no symptoms HEENT: Reports: no symptoms Respiratory: Reports: no symptoms Breasts: Reports: no symptoms Cardiovascular: Reports: no symptoms Gastrointestinal/Abdominal: Reports: diarrhea, bloating Genitourinary: Reports: no symptoms Neurologic: Reports: no symptoms Psychiatric: Reports: no symptoms Skin: Reports: no symptoms Endocrine: Reports: no symptoms Hematologic: Reports: no symptoms Musculoskeletal: Reports: no symptoms Allergies: Coded Allergies: No Known Allergies (Unverified , 12/22/16) Subjective he is still altered, unresponsive, has coffe ground emesis in his NGT Objective Vital Signs Last 24 Hour Vital Signs Date Time Temp Pulse Resp B/P (MAP) Pulse Ox O2 Delivery O2 Flow Rate FiO2 12/26/16 12:00 97.3 103 20 120/76 100 Nasal Cannula 2.0 12/26/16 11:37 97 12/26/16 08:00 97.7 99 20 126/70 100 Nasal Cannula 2.0 12/26/16 08:00 97 12/26/16 07:26 Nasal Cannula 2.0 28 12/26/16 07:25 98 Nasal Cannula 2.0 28 12/26/16 04:00 108 12/26/16 04:00 97.9 97 20 122/77 99 Nasal Cannula 2.0 12/26/16 00:00 97.9 103 20 139/68 99 Nasal Cannula 2.0 12/25/16 23:45 104 12/25/16 20:00 96.7 103 24 130/87 100 Nasal Cannula 2.0 12/25/16 19:50 110 12/25/16 19:00 Nasal Cannula 2.0 28 12/25/16 19:00 98 Nasal Cannula 2.0 28 12/25/16 16:00 97.3 95 20 138/76 100 Nasal Cannula 2.0 12/25/16 16:00 100 Height (Feet): 5 Height (Inches): 5.00 Weight (Pounds): 138 General Appearance: WD/WN, no acute distress HEENT: normocephalic, atraumatic, anicteric, mucous membranes moist, PERRL, EOMI, pharynx normal, supple Respiratory/Chest: chest wall non-tender, lungs clear, normal breath sounds, no respiratory distress, no accessory muscle use Cardiovascular: normal peripheral pulses, normal rate, regular rhythm, no gallop/murmur, no JVD Abdomen: normal bowel sounds, soft, non tender, no organomegaly, non distended , no mass, no scars Extremities: no cyanosis, no clubbing Skin: no rash, no lesions, no ulcers Neurologic/Psychiatric: alert, oriented x 3, responsive Laboratory Tests Test 12/26/16 04:30 White Blood Count 9.3 K/UL (4.8-10.8) Red Blood Count 2.66 M/UL (4.70-6.10) L Hemoglobin 8.5 G/DL (14.2-18.0) L Hematocrit 24.8 % (42.0-52.0) L Mean Corpuscular Volume 93 FL (80-99) Mean Corpuscular Hemoglobin 32.0 PG (27.0-31.0) H Mean Corpuscular Hemoglobin Concent 34.3 G/DL (32.0-36.0) Red Cell Distribution Width 19.9 % (11.6-14.8) H Platelet Count 161 K/UL (150-450) Mean Platelet Volume 6.9 FL (6.5-10.1) Neutrophils (%) (Auto) 83.9 % (45.0-75.0) H Lymphocytes (%) (Auto) 7.6 % (20.0-45.0) L Monocytes (%) (Auto) 6.7 % (1.0-10.0) Eosinophils (%) (Auto) 1.2 % (0.0-3.0) Basophils (%) (Auto) 0.5 % (0.0-2.0) Sodium Level 144 MMOL/L (136-145) Potassium Level 2.7 MMOL/L (3.5-5.1) *L Chloride Level 109 MMOL/L (98-107) H Carbon Dioxide Level 23 MMOL/L (21-32) Anion Gap 12 (5-15) Blood Urea Nitrogen 35 mg/dL (7-18) H Creatinine 1.4 MG/DL (0.55-1.30) H Estimat Glomerular Filtration Rate 53.2 mL/min (>60) Glucose Level 97 MG/DL (74-106) Calcium Level 8.7 MG/DL (8.5-10.1) Current Medications Medications (Trade) Dose Ordered Sig/Perla Route PRN Reason Start Time Stop Time Status Last Admin Dose Admin Chlorhexidine Gluconate (Iesha-Hex 2%) 1 applic DAILY@2000 TOPIC 12/24/16 20:00 01/23/17 19:59 12/25/16 21:04 Dextrose/ Electrolytes 1,000 ml @ 50 mls/hr Q20H IV 12/26/16 09:00 01/25/17 08:59 12/26/16 10:53 Loperamide HCl (Imodium) 2 mg Q4H PRN ORAL Diarrhea 12/23/16 12:15 01/21/17 20:14 Ondansetron HCl (Zofran) 4 mg Q6H PRN IVP Nausea & Vomiting 12/23/16 10:00 01/22/17 09:59 Pantoprazole (Protonix) 40 mg BIAC IVP 12/23/16 16:30 01/22/17 16:29 12/26/16 06:14 Piperacillin Sod/ Tazobactam Sod 3.375 gm/Dextrose 110 ml @ 27.5 mls/hr Q8H IVPB 12/23/16 12:00 12/30/16 11:59 12/26/16 12:26 Rifaximin (Xifaxan) 550 mg EVERY 12 HOURS ORAL 12/23/16 21:00 12/30/16 20:59 12/26/16 08:57 Rody Quevedo M.D. Dec 26, 2016 15:34
[2016-12-26 16:00] VITALS: BP 120/68
--- NOTE | 2016-12-26 17:43 | Cardiac Electrophysiology PN ---
Assessment/Plan Assessment/Plan 1. Sinus Tachycardia due to hepatic encephalopathy and sepsis. No evidence of atrial fibrillation. 2. Coffee-ground emesis in a patient with history of pancreatic cancer, on Xifaxan and lactulose, Protonix, antibiotics vancomycin and Zosyn. FU by Dr. Villanueva. Paracentesis in am. 3. Anemia, gastrointestinal bleed. 4. Hyponatremia. 5. Hypokalemia. Replaced. Subjective Subjective Paracentesis was rescheduled for tomorrow again for hypokalemia..Family at bedside. Objective Last 24 Hour Vital Signs Date Time Temp Pulse Resp B/P (MAP) Pulse Ox O2 Delivery O2 Flow Rate FiO2 12/26/16 12:00 97.3 103 20 120/76 100 Nasal Cannula 2.0 12/26/16 11:37 97 12/26/16 08:00 97.7 99 20 126/70 100 Nasal Cannula 2.0 12/26/16 08:00 97 12/26/16 07:26 Nasal Cannula 2.0 28 12/26/16 07:25 98 Nasal Cannula 2.0 28 12/26/16 04:00 108 12/26/16 04:00 97.9 97 20 122/77 99 Nasal Cannula 2.0 12/26/16 00:00 97.9 103 20 139/68 99 Nasal Cannula 2.0 12/25/16 23:45 104 12/25/16 20:00 96.7 103 24 130/87 100 Nasal Cannula 2.0 12/25/16 19:50 110 12/25/16 19:00 Nasal Cannula 2.0 28 12/25/16 19:00 98 Nasal Cannula 2.0 28 Intake and Output 12/26/16 12/27/16 19:00 07:00 Intake Total 637.5 ml Balance 637.5 ml IV Total 637.5 ml Laboratory Tests Test 12/26/16 04:30 White Blood Count 9.3 K/UL (4.8-10.8) Red Blood Count 2.66 M/UL (4.70-6.10) L Hemoglobin 8.5 G/DL (14.2-18.0) L Hematocrit 24.8 % (42.0-52.0) L Mean Corpuscular Volume 93 FL (80-99) Mean Corpuscular Hemoglobin 32.0 PG (27.0-31.0) H Mean Corpuscular Hemoglobin Concent 34.3 G/DL (32.0-36.0) Red Cell Distribution Width 19.9 % (11.6-14.8) H Platelet Count 161 K/UL (150-450) Mean Platelet Volume 6.9 FL (6.5-10.1) Neutrophils (%) (Auto) 83.9 % (45.0-75.0) H Lymphocytes (%) (Auto) 7.6 % (20.0-45.0) L Monocytes (%) (Auto) 6.7 % (1.0-10.0) Eosinophils (%) (Auto) 1.2 % (0.0-3.0) Basophils (%) (Auto) 0.5 % (0.0-2.0) Sodium Level 144 MMOL/L (136-145) Potassium Level 2.7 MMOL/L (3.5-5.1) *L Chloride Level 109 MMOL/L (98-107) H Carbon Dioxide Level 23 MMOL/L (21-32) Anion Gap 12 (5-15) Blood Urea Nitrogen 35 mg/dL (7-18) H Creatinine 1.4 MG/DL (0.55-1.30) H Estimat Glomerular Filtration Rate 53.2 mL/min (>60) Glucose Level 97 MG/DL (74-106) Calcium Level 8.7 MG/DL (8.5-10.1) Objective Head and Neck: Positive JVD LUNGS: Decreased breath sounds. CARDIOVASCULAR: Tachycardic. S1 and S2. ABDOMEN: Distended. EXTREMITIES: 2+ pitting edema. MELBA IBRAHIM Dec 26, 2016 17:42
--- NOTE | 2016-12-26 19:25 | General Progress Note ---
Assessment/Plan Assessment/Plan ASSESSMENT AND RECOMMENDATIONS: 1. 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 The patient is currently getting chemotherapy at [facility]. 2. Anemia secondary to upper gastrointestinal bleed. GI following. 3. Anemia, secondary to chronic disease. Anemia workup has been ordered and reviewed --> transfuse if drops below 7 4. Sepsis. ID following 5. Ascites. PRN paracentesis, was cancelled today due to hypokalemia 6. Nausea and vomiting due to chemotherapy. 7. Coagulopathy. 8. Malnutrition, vitamin K deficiency a factor. Subjective Constitutional: Reports: no symptoms HEENT: Reports: no symptoms Cardiovascular: Reports: no symptoms Respiratory: Reports: no symptoms Gastrointestinal/Abdominal: Reports: no symptoms Genitourinary: Reports: no symptoms Neurologic/Psychiatric: Reports: no symptoms Endocrine: Reports: no symptoms Hematologic/Lymphatic: Reports: no symptoms Allergies: Coded Allergies: No Known Allergies (Unverified , 12/22/16) Objective Last 24 Hour Vital Signs Date Time Temp Pulse Resp B/P (MAP) Pulse Ox O2 Delivery O2 Flow Rate FiO2 12/26/16 16:00 97.7 95 22 120/68 100 Nasal Cannula 2.0 12/26/16 16:00 99 12/26/16 12:00 97.3 103 20 120/76 100 Nasal Cannula 2.0 12/26/16 11:37 97 12/26/16 08:00 97.7 99 20 126/70 100 Nasal Cannula 2.0 12/26/16 08:00 97 12/26/16 07:26 Nasal Cannula 2.0 28 12/26/16 07:25 98 Nasal Cannula 2.0 28 12/26/16 04:00 108 12/26/16 04:00 97.9 97 20 122/77 99 Nasal Cannula 2.0 12/26/16 00:00 97.9 103 20 139/68 99 Nasal Cannula 2.0 12/25/16 23:45 104 12/25/16 20:00 96.7 103 24 130/87 100 Nasal Cannula 2.0 12/25/16 19:50 110 Intake and Output 12/26/16 12/27/16 19:00 07:00 Intake Total 887.5 ml Output Total 250 ml Balance 637.5 ml Intake Free Water 100 ml IV Total 787.5 ml Output Urine Total 150 ml Gastric Drainage Total 100 ml # Voids 1 Laboratory Tests 12/26/16 04:30: White Blood Count 9.3, Red Blood Count 2.66L, Hemoglobin 8.5L, Hematocrit 24.8L , Mean Corpuscular Volume 93, Mean Corpuscular Hemoglobin 32.0H, Mean Corpuscular Hemoglobin Concent 34.3, Red Cell Distribution Width 19.9H, Platelet Count 161, Mean Platelet Volume 6.9, Neutrophils (%) (Auto) 83.9H, Lymphocytes (%) (Auto) 7.6L, Monocytes (%) (Auto) 6.7, Eosinophils (%) (Auto) 1.2, Basophils (%) (Auto) 0.5, Sodium Level 144, Potassium Level 2.7*L, Chloride Level 109H, Carbon Dioxide Level 23, Anion Gap 12, Blood Urea Nitrogen 35H, Creatinine 1.4H, Estimat Glomerular Filtration Rate 53.2, Glucose Level 97 , Calcium Level 8.7 Height (Feet): 5 Height (Inches): 5.00 Weight (Pounds): 138 General Appearance: no apparent distress EENT: TMs normal Neck: normal inspection Respiratory/Chest: no accessory muscle use Abdomen: non tender Edema: mild edema Dwayne Moe Dec 26, 2016 19:25
[2016-12-26 20:00] VITALS: BP 126/79
[2016-12-26] MEDS: Dyna-Hex 2% Top Sol 2oz TOPIC SCH (20:37)
[2016-12-27] VITALS: BP 111/67
[2016-12-27 04:00] VITALS: BP 124/71
[2016-12-27 04:40] LABS: BASOPHILS % (AUTO) 1.1 % (0.0-2.0); EOSINOPHILS % (AUTO) 1.6 % (0.0-3.0); LYMPHOCYTES % (AUTO) 7.5 % (20.0-45.0); MEAN CORPUSCULAR HEMOGLOBIN 32.1 PG (27.0-31.0); MEAN CORPUSCULAR HGB CONC 34.4 G/DL (32.0-36.0); MEAN CORPUSCULAR VOLUME 94 FL (80-99); MEAN PLATELET VOLUME 6.6 FL (6.5-10.1); MONOCYTES % (AUTO) 6.1 % (1.0-10.0); NEUTROPHILS % (AUTO) 83.6 % (45.0-75.0); PLATELET COUNT 184 K/UL (150-450); RED BLOOD COUNT 2.54 M/UL (4.70-6.10); RED CELL DISTRIBUTION WIDTH 19.6 % (11.6-14.8); WHITE BLOOD COUNT 7.8 K/UL (4.8-10.8)
[2016-12-27] MEDS: D5 1/2NS w/KCl 40meq 1000ml 1,000 ML IV SCH (05:28)
[2016-12-27 05:47] LABS: ALANINE AMINOTRANSFERASE 68 U/L (12-78); ALBUMIN/GLOBULIN RATIO 0.3 (1.0-2.7); ANION GAP 10 (5-15); ASPARTATE AMINO TRANSFERASE 220 U/L (15-37); CARBON DIOXIDE 22 MMOL/L (21-32); CHLORIDE 105 MMOL/L (98-107); CREATININE 1.2 MG/DL (0.55-1.30); GLOMERULAR FILTRATION RATE > 60 mL/min (>60); POTASSIUM 3.2 MMOL/L (3.5-5.1); SODIUM 137 MMOL/L (136-145)
[2016-12-27] MEDS: Pantoprazole Inj IVP SCH ×2 (06:07→18:35)
[2016-12-27 06:36] LABS: BILIRUBIN,DIRECT 6.1 MG/DL (0.0-0.3)
[2016-12-27 07:05] LABS: CALCIUM 8.5 MG/DL (8.5-10.1)
[2016-12-27 08:00] VITALS: BP 103/63
[2016-12-27 12:00] VITALS: BP 96/71
--- NOTE | 2016-12-27 13:03 | Cardiac Electrophysiology PN ---
Assessment/Plan Assessment/Plan 1. Sinus Tachycardia due to hepatic encephalopathy and sepsis. No evidence of atrial fibrillation. 2. Coffee-ground emesis in a patient with history of pancreatic cancer, on Xifaxan and lactulose, Protonix, antibiotics vancomycin and Zosyn. FU by Dr. Villanueva. Paracentesis today pending. 3. Anemia, gastrointestinal bleed. 4. Hyponatremia. 5. Hypokalemia. Replaced. Subjective Subjective Paracentesis was rescheduled for today after hypokalemia corrected.Family at bedside. Objective Last 24 Hour Vital Signs Date Time Temp Pulse Resp B/P (MAP) Pulse Ox O2 Delivery O2 Flow Rate FiO2 12/27/16 08:00 97.5 96 19 103/63 100 Nasal Cannula 2.0 12/27/16 07:40 99 12/27/16 04:00 94 12/27/16 04:00 97.2 92 20 124/71 100 Nasal Cannula 2.0 12/27/16 00:00 98.0 105 20 111/67 100 Nasal Cannula 2.0 12/27/16 00:00 98.4 105 20 111/67 100 Nasal Cannula 2.0 12/27/16 00:00 105 12/26/16 20:00 103 12/26/16 20:00 97.7 100 20 126/79 100 Nasal Cannula 2.0 12/26/16 19:05 Nasal Cannula 2.0 28 12/26/16 19:05 97 Nasal Cannula 2.0 28 12/26/16 16:00 97.7 95 22 120/68 100 Nasal Cannula 2.0 12/26/16 16:00 99 Laboratory Tests Test 12/27/16 03:15 White Blood Count 7.8 K/UL (4.8-10.8) Red Blood Count 2.54 M/UL (4.70-6.10) L Hemoglobin 8.2 G/DL (14.2-18.0) L Hematocrit 23.8 % (42.0-52.0) L Mean Corpuscular Volume 94 FL (80-99) Mean Corpuscular Hemoglobin 32.1 PG (27.0-31.0) H Mean Corpuscular Hemoglobin Concent 34.4 G/DL (32.0-36.0) Red Cell Distribution Width 19.6 % (11.6-14.8) H Platelet Count 184 K/UL (150-450) Mean Platelet Volume 6.6 FL (6.5-10.1) Neutrophils (%) (Auto) 83.6 % (45.0-75.0) H Lymphocytes (%) (Auto) 7.5 % (20.0-45.0) L Monocytes (%) (Auto) 6.1 % (1.0-10.0) Eosinophils (%) (Auto) 1.6 % (0.0-3.0) Basophils (%) (Auto) 1.1 % (0.0-2.0) Sodium Level 137 MMOL/L (136-145) Potassium Level 3.2 MMOL/L (3.5-5.1) L Chloride Level 105 MMOL/L (98-107) Carbon Dioxide Level 22 MMOL/L (21-32) Anion Gap 10 (5-15) Blood Urea Nitrogen 37 mg/dL (7-18) H Creatinine 1.2 MG/DL (0.55-1.30) Estimat Glomerular Filtration Rate > 60 mL/min (>60) Glucose Level 109 MG/DL (74-106) H Calcium Level 8.5 MG/DL (8.5-10.1) Total Bilirubin 7.1 MG/DL (0.2-1.0) H Direct Bilirubin 6.1 MG/DL (0.0-0.3) H Aspartate Amino Transf (AST/SGOT) 220 U/L (15-37) H Alanine Aminotransferase (ALT/SGPT) 68 U/L (12-78) Alkaline Phosphatase 495 U/L (46-116) H Total Protein 7.0 G/DL (6.4-8.2) Albumin 1.6 G/DL (3.4-5.0) L Globulin 5.4 g/dL Albumin/Globulin Ratio 0.3 (1.0-2.7) L Objective Head and Neck: Positive JVD LUNGS: Decreased breath sounds. CARDIOVASCULAR: Tachycardic. S1 and S2. ABDOMEN: Distended with ascites. EXTREMITIES: 2+ pitting edema. MELBA IBRAHIM Dec 27, 2016 13:03
[2016-12-27 13:37] LABS: OTHERS PATHOLOGIST COMMENT
--- NOTE | 2016-12-27 15:54 | GI Progress Note ---
Assessment/Plan Problems: (1) juandice (2) Encephalopathy ICD Codes: G93.40 - Encephalopathy, unspecified SNOMED: 84231432, 728053050 (3) Adenocarcinoma of pancreas, stage 4 ICD Codes: C25.9 - Malignant neoplasm of pancreas, unspecified SNOMED: 11740731, 163604861 (4) Upper GI bleed ICD Codes: K92.2 - Gastrointestinal hemorrhage, unspecified SNOMED: 05193668 (5) Vomiting ICD Codes: R11.10 - Vomiting, unspecified SNOMED: 477628286 Qualifiers: Qualified Codes: R11.2 - Nausea with vomiting, unspecified (6) Pancreatic mass ICD Codes: K86.9 - Disease of pancreas, unspecified SNOMED: 747102302 (7) Ascites ICD Codes: R18.8 - Other ascites SNOMED: 234117538 Qualifiers: Qualified Codes: R18.8 - Other ascites (8) Anemia ICD Codes: D64.9 - Anemia, unspecified SNOMED: 592353873 Qualifiers: Qualified Codes: D64.9 - Anemia, unspecified Status: unchanged Status Narrative Discussed with Dr. Villanueva. Assessment/Plan OB stool positive removed NGT, begin FLD, adv as tolerated monitor H&H, PRN blood transfusion poor prognosis abx lactulose and xifaxan paracentesis pending electrolyte correction fu labs Subjective Subjective limited Objective Last 24 Hour Vital Signs Date Time Temp Pulse Resp B/P (MAP) Pulse Ox O2 Delivery O2 Flow Rate FiO2 12/27/16 12:00 97.1 94 18 96/71 100 Nasal Cannula 2.0 12/27/16 11:50 103 12/27/16 08:00 97.5 96 19 103/63 100 Nasal Cannula 2.0 12/27/16 07:40 99 12/27/16 04:00 94 12/27/16 04:00 97.2 92 20 124/71 100 Nasal Cannula 2.0 12/27/16 00:00 98.0 105 20 111/67 100 Nasal Cannula 2.0 12/27/16 00:00 98.4 105 20 111/67 100 Nasal Cannula 2.0 12/27/16 00:00 105 12/26/16 20:00 103 12/26/16 20:00 97.7 100 20 126/79 100 Nasal Cannula 2.0 12/26/16 19:05 Nasal Cannula 2.0 28 12/26/16 19:05 97 Nasal Cannula 2.0 28 12/26/16 16:00 97.7 95 22 120/68 100 Nasal Cannula 2.0 12/26/16 16:00 99 Intake and Output 12/27/16 12/28/16 19:00 07:00 Intake Total 350 ml Balance 350 ml IV Total 350 ml # Bowel Movements 2 Laboratory Tests Test 12/27/16 03:15 White Blood Count 7.8 K/UL (4.8-10.8) Red Blood Count 2.54 M/UL (4.70-6.10) L Hemoglobin 8.2 G/DL (14.2-18.0) L Hematocrit 23.8 % (42.0-52.0) L Mean Corpuscular Volume 94 FL (80-99) Mean Corpuscular Hemoglobin 32.1 PG (27.0-31.0) H Mean Corpuscular Hemoglobin Concent 34.4 G/DL (32.0-36.0) Red Cell Distribution Width 19.6 % (11.6-14.8) H Platelet Count 184 K/UL (150-450) Mean Platelet Volume 6.6 FL (6.5-10.1) Neutrophils (%) (Auto) 83.6 % (45.0-75.0) H Lymphocytes (%) (Auto) 7.5 % (20.0-45.0) L Monocytes (%) (Auto) 6.1 % (1.0-10.0) Eosinophils (%) (Auto) 1.6 % (0.0-3.0) Basophils (%) (Auto) 1.1 % (0.0-2.0) Sodium Level 137 MMOL/L (136-145) Potassium Level 3.2 MMOL/L (3.5-5.1) L Chloride Level 105 MMOL/L (98-107) Carbon Dioxide Level 22 MMOL/L (21-32) Anion Gap 10 (5-15) Blood Urea Nitrogen 37 mg/dL (7-18) H Creatinine 1.2 MG/DL (0.55-1.30) Estimat Glomerular Filtration Rate > 60 mL/min (>60) Glucose Level 109 MG/DL (74-106) H Calcium Level 8.5 MG/DL (8.5-10.1) Total Bilirubin 7.1 MG/DL (0.2-1.0) H Direct Bilirubin 6.1 MG/DL (0.0-0.3) H Aspartate Amino Transf (AST/SGOT) 220 U/L (15-37) H Alanine Aminotransferase (ALT/SGPT) 68 U/L (12-78) Alkaline Phosphatase 495 U/L (46-116) H Total Protein 7.0 G/DL (6.4-8.2) Albumin 1.6 G/DL (3.4-5.0) L Globulin 5.4 g/dL Albumin/Globulin Ratio 0.3 (1.0-2.7) L Height (Feet): 5 Height (Inches): 5.00 Weight (Pounds): 138 General Appearance: no apparent distress, alert, thin Cardiovascular: normal rate Respiratory/Chest: normal breath sounds, no respiratory distress Abdominal Exam: normal bowel sounds, non tender, soft, distended Lakia Vallejo N.P. Dec 27, 2016 15:54
[2016-12-27 16:00] VITALS: BP 99/70
--- NOTE | 2016-12-27 16:10 | Nephrology Progress Note ---
Assessment/Plan Problem List: (1) Anemia (2) Ascites (3) Vomiting (4) Pancreatic mass (5) Upper GI bleed (6) Sepsis (7) IMELDA (acute kidney injury) (8) Adenocarcinoma of pancreas, stage [address] head - negative onco following Cardio following GI following Continue current IVF Monitor H&H. Transfuse prn Paracentesis prn Continue NGT Obt[place] records from county Monitor renal function, we'll avoid nephrotoxins Abx per ID Monitor Lytes - replace prn Monitor neuro status Poor prognosis AM labs Subjective Constitutional: Denies: no symptoms, chills, diaphoresis, fever, malaise, weakness, other HEENT: Denies: no symptoms, eye pain, blurred vision, tearing, double vision, ear pain, ear discharge, nose pain, nose congestion, throat pain, throat swelling, mouth pain, mouth swelling, other Genitourinary: Denies: no symptoms, burning, discharge, frequency, flank pain, hematuria, incontinence, pain, urgency, other Neurologic/Psychiatric: Denies: no symptoms, anxiety, depressed, emotional problems, headache, numbness, paresthesia, pre-existing deficit, seizure, tingling, tremors, weakness, other Subjective In bed, alert and oriented, in no apparent distress, ultrasound guided paracentesis ongoing, 7.5L removed so far. Objective Objective Last 24 Hour Vital Signs Date Time Temp Pulse Resp B/P (MAP) Pulse Ox O2 Delivery O2 Flow Rate FiO2 12/27/16 12:00 97.1 94 18 96/71 100 Nasal Cannula 2.0 12/27/16 11:50 103 12/27/16 08:00 97.5 96 19 103/63 100 Nasal Cannula 2.0 12/27/16 07:40 99 12/27/16 04:00 94 12/27/16 04:00 97.2 92 20 124/71 100 Nasal Cannula 2.0 12/27/16 00:00 98.0 105 20 111/67 100 Nasal Cannula 2.0 12/27/16 00:00 98.4 105 20 111/67 100 Nasal Cannula 2.0 12/27/16 00:00 105 12/26/16 20:00 103 12/26/16 20:00 97.7 100 20 126/79 100 Nasal Cannula 2.0 12/26/16 19:05 Nasal Cannula 2.0 28 10/10/17 19:05 97 Nasal Cannula 2.0 28 Intake and Output 12/27/16 12/28/16 19:00 07:00 Intake Total 350 ml Balance 350 ml IV Total 350 ml # Bowel Movements 2 Laboratory Tests 12/27/16 03:15: White Blood Count 7.8, Red Blood Count 2.54L, Hemoglobin 8.2L, Hematocrit 23.8L , Mean Corpuscular Volume 94, Mean Corpuscular Hemoglobin 32.1H, Mean Corpuscular Hemoglobin Concent 34.4, Red Cell Distribution Width 19.6H, Platelet Count 184, Mean Platelet Volume 6.6, Neutrophils (%) (Auto) 83.6H, Lymphocytes (%) (Auto) 7.5L, Monocytes (%) (Auto) 6.1, Eosinophils (%) (Auto) 1.6, Basophils (%) (Auto) 1.1, Sodium Level 137, Potassium Level 3.2L, Chloride Level 105, Carbon Dioxide Level 22, Anion Gap 10, Blood Urea Nitrogen 37H, Creatinine 1.2, Estimat Glomerular Filtration Rate > 60, Glucose Level 109H, Calcium Level 8.5, Total Bilirubin 7.1H, Direct Bilirubin 6.1H, Aspartate Amino Transf (AST/SGOT) 220H, Alanine Aminotransferase (ALT/SGPT) 68, Alkaline Phosphatase 495H, Total Protein 7.0, Albumin 1.6L, Globulin 5.4, Albumin/ Globulin Ratio 0.3L Height (Feet): 5 Height (Inches): 5.00 Weight (Pounds): 138 General Appearance: no apparent distress, alert, cachetic EENT: normal ENT inspection Neck: non-tender, normal alignment Cardiovascular: normal rate Respiratory/Chest: decreased breath sounds Abdomen: distended Extremities: moderate edema Neurologic: alert, oriented x 3, responsive, normal mood/affect Roro Cortés N.P. Dec 27, 2016 16:10
--- NOTE | 2016-12-27 16:51 | Diagnostic Imaging Report ---
Indications: Ascites Technique: Ultrasound used to localize optimal puncture site. Sterile prepping and draping right lower quadrant. Local anesthesia with 1% lidocaine. Under real-time ultrasound guidance, puncture peritoneal space using paracentesis needle. Stylet removed. Catheter placed to vacuum bottle suction. Total 8.5 liters of clear yellow fluid aspirated. Patient tolerated procedure well, without immediate complication. Findings: Followup sonography demonstrates complete resolution of peritoneal fluid. Impression: Successful ultrasound-guided paracentesis, yielding 8.5 liters of clear yellow fluid
--- NOTE | 2016-12-27 17:22 | Infectious Diseases Prog Note ---
Assessment/Plan Problems: (1) Sepsis Assessment & Plan: less likely , with negative blood culture, had paracentesis today , recommend to send fluids for culture , monitor off zosyn empirically since he received five days already (2) Ascites Assessment & Plan: due to liver mets, and infiltrated peritoan, S/P paracentesis , GI and renal are following (3) Upper GI bleed Assessment & Plan: improving , monitor H/H, transfuse as needed, may need EGD, GI is following (4) IMELDA (acute kidney injury) Assessment & Plan: due to the above, avoid nephrotoxic meds, monitor renal function, nephrology is following (5) Adenocarcinoma of pancreas, stage 4 Assessment & Plan: S/P CHEMO X2, follow up with oncology for further eval and management (6) Poor prognosis Assessment & Plan: with advanced pancreatic cancer and mets, on palliative chemo, follow up with oncology Subjective Constitutional: Reports: no symptoms HEENT: Reports: no symptoms Respiratory: Reports: no symptoms Breasts: Reports: no symptoms Cardiovascular: Reports: no symptoms Gastrointestinal/Abdominal: Reports: bloating Genitourinary: Reports: no symptoms Neurologic: Reports: no symptoms Psychiatric: Reports: no symptoms Skin: Reports: no symptoms Allergies: Coded Allergies: No Known Allergies (Unverified , 12/22/16) Subjective he is still altered, unresponsive, has coffe ground emesis in his NGT Objective Vital Signs Last 24 Hour Vital Signs Date Time Temp Pulse Resp B/P (MAP) Pulse Ox O2 Delivery O2 Flow Rate FiO2 12/27/16 12:00 97.1 94 18 96/71 100 Nasal Cannula 2.0 12/27/16 11:50 103 12/27/16 08:00 97.5 96 19 103/63 100 Nasal Cannula 2.0 12/27/16 07:40 99 12/27/16 04:00 94 12/27/16 04:00 97.2 92 20 124/71 100 Nasal Cannula 2.0 12/27/16 00:00 98.0 105 20 111/67 100 Nasal Cannula 2.0 12/27/16 00:00 98.4 105 20 111/67 100 Nasal Cannula 2.0 12/27/16 00:00 105 12/26/16 20:00 103 12/26/16 20:00 97.7 100 20 126/79 100 Nasal Cannula 2.0 12/26/16 19:05 Nasal Cannula 2.0 28 12/26/16 19:05 97 Nasal Cannula 2.0 28 Height (Feet): 5 Height (Inches): 5.00 Weight (Pounds): 138 General Appearance: WD/WN, no acute distress HEENT: normocephalic, atraumatic, anicteric, mucous membranes moist Respiratory/Chest: chest wall non-tender, lungs clear, normal breath sounds, no respiratory distress Cardiovascular: normal peripheral pulses, normal rate, regular rhythm, no gallop/murmur, no JVD Abdomen: soft, non tender, no organomegaly, no mass, hypoactive bowel sounds, distended Extremities: no cyanosis Skin: no rash Laboratory Tests Test 12/27/16 03:15 White Blood Count 7.8 K/UL (4.8-10.8) Red Blood Count 2.54 M/UL (4.70-6.10) L Hemoglobin 8.2 G/DL (14.2-18.0) L Hematocrit 23.8 % (42.0-52.0) L Mean Corpuscular Volume 94 FL (80-99) Mean Corpuscular Hemoglobin 32.1 PG (27.0-31.0) H Mean Corpuscular Hemoglobin Concent 34.4 G/DL (32.0-36.0) Red Cell Distribution Width 19.6 % (11.6-14.8) H Platelet Count 184 K/UL (150-450) Mean Platelet Volume 6.6 FL (6.5-10.1) Neutrophils (%) (Auto) 83.6 % (45.0-75.0) H Lymphocytes (%) (Auto) 7.5 % (20.0-45.0) L Monocytes (%) (Auto) 6.1 % (1.0-10.0) Eosinophils (%) (Auto) 1.6 % (0.0-3.0) Basophils (%) (Auto) 1.1 % (0.0-2.0) Sodium Level 137 MMOL/L (136-145) Potassium Level 3.2 MMOL/L (3.5-5.1) L Chloride Level 105 MMOL/L (98-107) Carbon Dioxide Level 22 MMOL/L (21-32) Anion Gap 10 (5-15) Blood Urea Nitrogen 37 mg/dL (7-18) H Creatinine 1.2 MG/DL (0.55-1.30) Estimat Glomerular Filtration Rate > 60 mL/min (>60) Glucose Level 109 MG/DL (74-106) H Calcium Level 8.5 MG/DL (8.5-10.1) Total Bilirubin 7.1 MG/DL (0.2-1.0) H Direct Bilirubin 6.1 MG/DL (0.0-0.3) H Aspartate Amino Transf (AST/SGOT) 220 U/L (15-37) H Alanine Aminotransferase (ALT/SGPT) 68 U/L (12-78) Alkaline Phosphatase 495 U/L (46-116) H Total Protein 7.0 G/DL (6.4-8.2) Albumin 1.6 G/DL (3.4-5.0) L Globulin 5.4 g/dL Albumin/Globulin Ratio 0.3 (1.0-2.7) L Current Medications Medications (Trade) Dose Ordered Sig/Perla Route PRN Reason Start Time Stop Time Status Last Admin Dose Admin Chlorhexidine Gluconate (Iesha-Hex 2%) 1 applic DAILY@2000 TOPIC 12/24/16 20:00 01/23/17 19:59 12/26/16 20:37 Dextrose/ Electrolytes 1,000 ml @ 50 mls/hr Q20H IV 12/26/16 09:00 01/25/17 08:59 12/27/16 05:28 Loperamide HCl (Imodium) 2 mg Q4H PRN ORAL Diarrhea 12/23/16 12:15 01/21/17 20:14 Ondansetron HCl (Zofran) 4 mg Q6H PRN IVP Nausea & Vomiting 12/23/16 10:00 01/22/17 09:59 Pantoprazole (Protonix) 40 mg BIAC IVP 12/23/16 16:30 01/22/17 16:29 12/27/16 06:07 Rifaximin (Xifaxan) 550 mg EVERY 12 HOURS ORAL 12/23/16 21:00 12/30/16 20:59 12/27/16 09:29 Rody Quevedo M.D. Dec 27, 2016 17:22
--- NOTE | 2016-12-27 17:31 | General Progress Note ---
Assessment/Plan Assessment/Plan ASSESSMENT AND RECOMMENDATIONS: 1. 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 The patient is currently getting chemotherapy at [facility]. 2. Anemia secondary to upper gastrointestinal bleed. GI following. 3. Anemia, secondary to chronic disease. Anemia workup has been ordered and reviewed --> transfuse if drops below 7 4. Sepsis. ID following 5. Ascites. received paracentesis yielding 8.5 liters 6. Nausea and vomiting due to chemotherapy. 7. Coagulopathy. 8. Malnutrition, vitamin K deficiency a factor. Subjective Constitutional: Reports: no symptoms HEENT: Reports: no symptoms Cardiovascular: Reports: no symptoms Respiratory: Reports: no symptoms Gastrointestinal/Abdominal: Reports: no symptoms Genitourinary: Reports: no symptoms Neurologic/Psychiatric: Reports: no symptoms Endocrine: Reports: no symptoms Hematologic/Lymphatic: Reports: no symptoms Allergies: Coded Allergies: No Known Allergies (Unverified , 12/22/16) Subjective s/p paracentesis Objective Last 24 Hour Vital Signs Date Time Temp Pulse Resp B/P (MAP) Pulse Ox O2 Delivery O2 Flow Rate FiO2 12/27/16 16:00 91 12/27/16 12:00 97.1 94 18 96/71 100 Nasal Cannula 2.0 12/27/16 11:50 103 12/27/16 08:00 97.5 96 19 103/63 100 Nasal Cannula 2.0 12/27/16 07:40 99 12/27/16 04:00 94 12/27/16 04:00 97.2 92 20 124/71 100 Nasal Cannula 2.0 12/27/16 00:00 98.0 105 20 111/67 100 Nasal Cannula 2.0 12/27/16 00:00 98.4 105 20 111/67 100 Nasal Cannula 2.0 12/27/16 00:00 105 12/26/16 20:00 103 12/26/16 20:00 97.7 100 20 126/79 100 Nasal Cannula 2.0 12/26/16 19:05 Nasal Cannula 2.0 28 12/26/16 19:05 97 Nasal Cannula 2.0 28 Intake and Output 12/27/16 12/28/16 19:00 07:00 Intake Total 350 ml Balance 350 ml IV Total 350 ml # Bowel Movements 2 Laboratory Tests 12/27/16 03:15: White Blood Count 7.8, Red Blood Count 2.54L, Hemoglobin 8.2L, Hematocrit 23.8L , Mean Corpuscular Volume 94, Mean Corpuscular Hemoglobin 32.1H, Mean Corpuscular Hemoglobin Concent 34.4, Red Cell Distribution Width 19.6H, Platelet Count 184, Mean Platelet Volume 6.6, Neutrophils (%) (Auto) 83.6H, Lymphocytes (%) (Auto) 7.5L, Monocytes (%) (Auto) 6.1, Eosinophils (%) (Auto) 1.6, Basophils (%) (Auto) 1.1, Sodium Level 137, Potassium Level 3.2L, Chloride Level 105, Carbon Dioxide Level 22, Anion Gap 10, Blood Urea Nitrogen 37H, Creatinine 1.2, Estimat Glomerular Filtration Rate > 60, Glucose Level 109H, Calcium Level 8.5, Total Bilirubin 7.1H, Direct Bilirubin 6.1H, Aspartate Amino Transf (AST/SGOT) 220H, Alanine Aminotransferase (ALT/SGPT) 68, Alkaline Phosphatase 495H, Total Protein 7.0, Albumin 1.6L, Globulin 5.4, Albumin/ Globulin Ratio 0.3L Height (Feet): 5 Height (Inches): 5.00 Weight (Pounds): 138 General Appearance: lethargic EENT: TMs normal Neck: normal inspection Respiratory/Chest: normal breath sounds Abdomen: distended Edema: mild edema Dwayne Moe Dec 27, 2016 17:30
[2016-12-27] MEDS: Dyna-Hex 2% Top Sol 2oz TOPIC SCH (19:57)
[2016-12-27 20:00] VITALS: BP 113/70
[2016-12-27 20:34] LABS: APPEARANCE, BODY FLUID CLEAR; BD FL VOLUME 24 mL
[2016-12-27 20:35] LABS: BD FL SOURCE THORACENTESIS
[2016-12-27 21:38] LABS: BODY FLUID NUCLEATED CELLS 25 /CUMM; BODY FLUID RBC 1350 /CUMM; MONONUCLEAR WBC 79 %; POLYMORPHONUCLEAR WBC 16 %
[2016-12-28] VITALS: BP 104/62
[2016-12-28] MEDS: D5 1/2NS w/KCl 40meq 1000ml 1,000 ML IV SCH (01:14)
[2016-12-28 04:00] VITALS: BP 116/66
[2016-12-28] MEDS: Pantoprazole Inj IVP SCH ×2 (06:34→16:30)
[2016-12-28 06:49] LABS: INR 1.2 (0.9-1.1); PROTHROMBIN TIME 12.5 SEC (9.30-11.50)
[2016-12-28 07:00] LABS: BASOPHILS % (AUTO) 0.8 % (0.0-2.0); EOSINOPHILS % (AUTO) 1.8 % (0.0-3.0); LYMPHOCYTES % (AUTO) 9.4 % (20.0-45.0); MEAN CORPUSCULAR HEMOGLOBIN 31.6 PG (27.0-31.0); MEAN CORPUSCULAR HGB CONC 33.6 G/DL (32.0-36.0); MEAN CORPUSCULAR VOLUME 94 FL (80-99); MEAN PLATELET VOLUME 6.3 FL (6.5-10.1); MONOCYTES % (AUTO) 9.5 % (1.0-10.0); NEUTROPHILS % (AUTO) 78.5 % (45.0-75.0); PLATELET COUNT 216 K/UL (150-450); RED BLOOD COUNT 2.93 M/UL (4.70-6.10); RED CELL DISTRIBUTION WIDTH 19.5 % (11.6-14.8); WHITE BLOOD COUNT 7.3 K/UL (4.8-10.8)
[2016-12-28 07:55] LABS: ALANINE AMINOTRANSFERASE 67 U/L (12-78); ALBUMIN/GLOBULIN RATIO 0.3 (1.0-2.7); ANION GAP 8 (5-15); ASPARTATE AMINO TRANSFERASE 221 U/L (15-37); CALCIUM 8.3 MG/DL (8.5-10.1); CARBON DIOXIDE 22 MMOL/L (21-32); CHLORIDE 107 MMOL/L (98-107); CREATININE 1.1 MG/DL (0.55-1.30); GLOMERULAR FILTRATION RATE > 60 mL/min (>60); POTASSIUM 3.8 MMOL/L (3.5-5.1); SODIUM 137 MMOL/L (136-145); TOTAL PROTEIN 6.7 G/DL (6.4-8.2)
[2016-12-28 08:00] VITALS: BP 128/74
[2016-12-28 08:05] LABS: BILIRUBIN,DIRECT 5.4 MG/DL (0.0-0.3)
[2016-12-28 12:00] VITALS: BP 120/74
--- NOTE | 2016-12-28 12:17 | GI Progress Note ---
Assessment/Plan Problems: (1) juandice (2) Encephalopathy ICD Codes: G93.40 - Encephalopathy, unspecified SNOMED: 52002480, 290739855 (3) Adenocarcinoma of pancreas, stage 4 ICD Codes: C25.9 - Malignant neoplasm of pancreas, unspecified SNOMED: 87556449, 981119482 (4) Upper GI bleed ICD Codes: K92.2 - Gastrointestinal hemorrhage, unspecified SNOMED: 00077154 (5) Vomiting ICD Codes: R11.10 - Vomiting, unspecified SNOMED: 826050558 Qualifiers: Qualified Codes: R11.2 - Nausea with vomiting, unspecified (6) Pancreatic mass ICD Codes: K86.9 - Disease of pancreas, unspecified SNOMED: 383972164 (7) Ascites ICD Codes: R18.8 - Other ascites SNOMED: 989113431 Qualifiers: Qualified Codes: R18.8 - Other ascites (8) Anemia ICD Codes: D64.9 - Anemia, unspecified SNOMED: 309872637 Qualifiers: Qualified Codes: D64.9 - Anemia, unspecified Status: stable Status Narrative Discussed with Dr. Villanueva. Assessment/Plan ok for DC per GI standpoint OB stool positive FLD, tolerating okay to advance monitor H&H, PRN blood transfusion poor prognosis abx lactulose and xifaxan paracentesis pending electrolyte correction fu labs Subjective Subjective tolerating diet well feels okay Objective Last 24 Hour Vital Signs Date Time Temp Pulse Resp B/P (MAP) Pulse Ox O2 Delivery O2 Flow Rate FiO2 12/28/16 08:00 96 12/28/16 08:00 98.1 108 18 128/74 97 Nasal Cannula 2.0 12/28/16 04:00 97.7 100 22 116/66 100 Nasal Cannula 2.0 12/28/16 04:00 100 12/28/16 00:00 97.9 99 18 104/62 100 Nasal Cannula 2.0 12/28/16 00:00 99 12/27/16 20:00 98.1 92 20 113/70 100 Nasal Cannula 2.0 12/27/16 20:00 95 12/27/16 16:00 91 12/27/16 16:00 97.4 91 16 99/70 100 Nasal Cannula 2.0 Laboratory Tests Test 12/27/16 17:30 12/28/16 03:45 Body Fluid Source Pending Body Fluid Volume Pending Body Fluid Appearance Clear Body Fluid pH 8.0 Body Fluid RBC 1350 /CUMM Body Fluid Total Nucleated Cells 25 /CUMM Body Fluid Polynuclear WBCs (%) 16 % Body Fluid Mononuclear WBCs (%) 79 % Body Fluid Mesothelial Cells (%) 5 % Body Fluid Glucose Pending Body Fluid Total Protein Pending Body Fluid Albumin Pending Body Fluid Lactate Dehydrogenase Pending White Blood Count 7.3 K/UL (4.8-10.8) Red Blood Count 2.93 M/UL (4.70-6.10) L Hemoglobin 9.2 G/DL (14.2-18.0) L Hematocrit 27.6 % (42.0-52.0) L Mean Corpuscular Volume 94 FL (80-99) Mean Corpuscular Hemoglobin 31.6 PG (27.0-31.0) H Mean Corpuscular Hemoglobin Concent 33.6 G/DL (32.0-36.0) Red Cell Distribution Width 19.5 % (11.6-14.8) H Platelet Count 216 K/UL (150-450) Mean Platelet Volume 6.3 FL (6.5-10.1) L Neutrophils (%) (Auto) 78.5 % (45.0-75.0) H Lymphocytes (%) (Auto) 9.4 % (20.0-45.0) L Monocytes (%) (Auto) 9.5 % (1.0-10.0) Eosinophils (%) (Auto) 1.8 % (0.0-3.0) Basophils (%) (Auto) 0.8 % (0.0-2.0) Prothrombin Time 12.5 SEC (9.30-11.50) H Prothromb Time International Ratio 1.2 (0.9-1.1) H Activated Partial Thromboplast Time 33 SEC (23-33) Sodium Level 137 MMOL/L (136-145) Potassium Level 3.8 MMOL/L (3.5-5.1) Chloride Level 107 MMOL/L (98-107) Carbon Dioxide Level 22 MMOL/L (21-32) Anion Gap 8 (5-15) Blood Urea Nitrogen 31 mg/dL (7-18) H Creatinine 1.1 MG/DL (0.55-1.30) Estimat Glomerular Filtration Rate > 60 mL/min (>60) Glucose Level 125 MG/DL (74-106) H Calcium Level 8.3 MG/DL (8.5-10.1) L Total Bilirubin 6.4 MG/DL (0.2-1.0) H Direct Bilirubin 5.4 MG/DL (0.0-0.3) H Aspartate Amino Transf (AST/SGOT) 221 U/L (15-37) H Alanine Aminotransferase (ALT/SGPT) 67 U/L (12-78) Alkaline Phosphatase 602 U/L (46-116) H Total Protein 6.7 G/DL (6.4-8.2) Albumin 1.6 G/DL (3.4-5.0) L Globulin 5.1 g/dL Albumin/Globulin Ratio 0.3 (1.0-2.7) L Microbiology Date/Time Source Procedure Growth Status 12/27/16 17:30 Ascities Fluid Gram Stain - Final Resulted 12/27/16 17:30 Ascities Fluid Body Fluid Culture Pending Resulted Height (Feet): 5 Height (Inches): 5.00 Weight (Pounds): 138 General Appearance: no apparent distress, alert, thin Cardiovascular: normal rate Respiratory/Chest: normal breath sounds, no respiratory distress Abdominal Exam: normal bowel sounds, non tender, soft Lakia Vallejo N.Robert Dec 28, 2016 12:17
[2016-12-28 13:33] LABS: PROTEIN, BODY FLUID 1.4 g/dL (.)
--- NOTE | 2016-12-28 15:14 | Infectious Diseases Prog Note ---
Assessment/Plan Problems: (1) Ascites Assessment & Plan: due to liver mets, and infiltrated peritoan, S/P paracentesis , no evidence of infection , S/P zosyn for 5 days , GI and renal are following (2) Upper GI bleed Assessment & Plan: improving , monitor H/H, transfuse as needed, GI is following (3) IMELDA (acute kidney injury) Assessment & Plan: due to the above, avoid nephrotoxic meds, monitor renal function, nephrology is following (4) Adenocarcinoma of pancreas, stage 4 Assessment & Plan: S/P CHEMO X2, follow up with oncology for further eval and management (5) Poor prognosis Assessment & Plan: with advanced pancreatic cancer and mets, on palliative chemo, follow up with oncology Subjective Constitutional: Reports: no symptoms HEENT: Reports: no symptoms Respiratory: Reports: no symptoms Breasts: Reports: no symptoms Cardiovascular: Reports: no symptoms Gastrointestinal/Abdominal: Reports: no symptoms Genitourinary: Reports: no symptoms Neurologic: Reports: no symptoms Psychiatric: Reports: no symptoms Skin: Reports: no symptoms Endocrine: Reports: no symptoms Hematologic: Reports: no symptoms Allergies: Coded Allergies: No Known Allergies (Unverified , 12/22/16) Subjective he is still altered, unresponsive, has coffe ground emesis in his NGT Objective Vital Signs Last 24 Hour Vital Signs Date Time Temp Pulse Resp B/P (MAP) Pulse Ox O2 Delivery O2 Flow Rate FiO2 12/28/16 12:00 105 12/28/16 12:00 97.9 90 18 120/74 100 Nasal Cannula 2.0 12/28/16 08:00 96 12/28/16 08:00 98.1 108 18 128/74 97 Nasal Cannula 2.0 12/28/16 04:00 97.7 100 22 116/66 100 Nasal Cannula 2.0 12/28/16 04:00 100 12/28/16 00:00 97.9 99 18 104/62 100 Nasal Cannula 2.0 12/28/16 00:00 99 12/27/16 20:00 98.1 92 20 113/70 100 Nasal Cannula 2.0 12/27/16 20:00 95 12/27/16 16:00 91 12/27/16 16:00 97.4 91 16 99/70 100 Nasal Cannula 2.0 Height (Feet): 5 Height (Inches): 5.00 Weight (Pounds): 138 General Appearance: WD/WN, no acute distress HEENT: normocephalic, atraumatic, anicteric, mucous membranes moist Respiratory/Chest: chest wall non-tender, lungs clear, normal breath sounds, no respiratory distress, no accessory muscle use Cardiovascular: normal peripheral pulses, normal rate, regular rhythm, no gallop/murmur, no JVD Abdomen: soft, non tender, no organomegaly, no mass, no scars, absent bowel sounds, distended Extremities: no cyanosis, no clubbing Skin: no rash, no lesions Neurologic/Psychiatric: alert, oriented x 3 Microbiology Date/Time Source Procedure Growth Status 12/27/16 17:30 Ascities Fluid Gram Stain - Final Resulted 12/27/16 17:30 Ascities Fluid Body Fluid Culture Pending Resulted Laboratory Tests Test 12/27/16 17:30 12/28/16 03:45 Body Fluid Source Pending Body Fluid Volume Pending Body Fluid Appearance Clear Body Fluid pH 8.0 Body Fluid RBC 1350 /CUMM Body Fluid Total Nucleated Cells 25 /CUMM Body Fluid Polynuclear WBCs (%) 16 % Body Fluid Mononuclear WBCs (%) 79 % Body Fluid Mesothelial Cells (%) 5 % Body Fluid Glucose 117 mg/dL (.) Body Fluid Total Protein 1.4 g/dL (.) Body Fluid Albumin 0.8 g/dL (.) Body Fluid Lactate Dehydrogenase Pending White Blood Count 7.3 K/UL (4.8-10.8) Red Blood Count 2.93 M/UL (4.70-6.10) L Hemoglobin 9.2 G/DL (14.2-18.0) L Hematocrit 27.6 % (42.0-52.0) L Mean Corpuscular Volume 94 FL (80-99) Mean Corpuscular Hemoglobin 31.6 PG (27.0-31.0) H Mean Corpuscular Hemoglobin Concent 33.6 G/DL (32.0-36.0) Red Cell Distribution Width 19.5 % (11.6-14.8) H Platelet Count 216 K/UL (150-450) Mean Platelet Volume 6.3 FL (6.5-10.1) L Neutrophils (%) (Auto) 78.5 % (45.0-75.0) H Lymphocytes (%) (Auto) 9.4 % (20.0-45.0) L Monocytes (%) (Auto) 9.5 % (1.0-10.0) Eosinophils (%) (Auto) 1.8 % (0.0-3.0) Basophils (%) (Auto) 0.8 % (0.0-2.0) Prothrombin Time 12.5 SEC (9.30-11.50) H Prothromb Time International Ratio 1.2 (0.9-1.1) H Activated Partial Thromboplast Time 33 SEC (23-33) Sodium Level 137 MMOL/L (136-145) Potassium Level 3.8 MMOL/L (3.5-5.1) Chloride Level 107 MMOL/L (98-107) Carbon Dioxide Level 22 MMOL/L (21-32) Anion Gap 8 (5-15) Blood Urea Nitrogen 31 mg/dL (7-18) H Creatinine 1.1 MG/DL (0.55-1.30) Estimat Glomerular Filtration Rate > 60 mL/min (>60) Glucose Level 125 MG/DL (74-106) H Calcium Level 8.3 MG/DL (8.5-10.1) L Total Bilirubin 6.4 MG/DL (0.2-1.0) H Direct Bilirubin 5.4 MG/DL (0.0-0.3) H Aspartate Amino Transf (AST/SGOT) 221 U/L (15-37) H Alanine Aminotransferase (ALT/SGPT) 67 U/L (12-78) Alkaline Phosphatase 602 U/L (46-116) H Total Protein 6.7 G/DL (6.4-8.2) Albumin 1.6 G/DL (3.4-5.0) L Globulin 5.1 g/dL Albumin/Globulin Ratio 0.3 (1.0-2.7) L Current Medications Medications (Trade) Dose Ordered Sig/Perla Route PRN Reason Start Time Stop Time Status Last Admin Dose Admin Chlorhexidine Gluconate (Iesha-Hex 2%) 1 applic DAILY@1999 TOPIC 12/24/16 20:00 01/23/17 19:59 12/27/16 19:57 Dextrose/ Electrolytes 1,000 ml @ 50 mls/hr Q20H IV 12/26/16 09:00 01/25/17 08:59 12/28/16 01:14 Loperamide HCl (Imodium) 2 mg Q4H PRN ORAL Diarrhea 12/23/16 12:15 01/21/17 20:14 Ondansetron HCl (Zofran) 4 mg Q6H PRN IVP Nausea & Vomiting 12/23/16 10:00 01/22/17 09:59 Pantoprazole (Protonix) 40 mg BIAC IVP 12/23/16 16:30 01/22/17 16:29 12/28/16 06:34 Rifaximin (Xifaxan) 550 mg EVERY 12 HOURS ORAL 12/23/16 21:00 12/30/16 20:59 12/28/16 08:43 Rody Quevedo M.D. Dec 28, 2016 15:14
--- NOTE | 2016-12-28 15:47 | Cardiac Electrophysiology PN ---
Assessment/Plan Assessment/Plan 1. Sinus Tachycardia due to hepatic encephalopathy and sepsis. No evidence of atrial fibrillation. 2. Coffee-ground emesis in a patient with history of pancreatic cancer, on Xifaxan and lactulose, Protonix, antibiotics vancomycin and Zosyn. FU by Dr. Villanueva. S/P 8 liters of Paracentesis today 3. Anemia, gastrointestinal bleed. 4. Hyponatremia. 5. Hypokalemia. Replaced. DW RN and family Subjective Subjective Had 8 liters of Paracentesis today. DC planning home with hospice today. Family at bedside. Objective Last 24 Hour Vital Signs Date Time Temp Pulse Resp B/P (MAP) Pulse Ox O2 Delivery O2 Flow Rate FiO2 12/28/16 12:00 105 12/28/16 12:00 97.9 90 18 120/74 100 Nasal Cannula 2.0 12/28/16 08:00 96 12/28/16 08:00 98.1 108 18 128/74 97 Nasal Cannula 2.0 12/28/16 04:00 97.7 100 22 116/66 100 Nasal Cannula 2.0 12/28/16 04:00 100 12/28/16 00:00 97.9 99 18 104/62 100 Nasal Cannula 2.0 12/28/16 00:00 99 12/27/16 20:00 98.1 92 20 113/70 100 Nasal Cannula 2.0 12/27/16 20:00 95 12/27/16 16:00 91 12/27/16 16:00 97.4 91 16 99/70 100 Nasal Cannula 2.0 Intake and Output 12/28/16 12/29/16 19:00 07:00 Intake Total 300 ml Balance 300 ml IV Total 300 ml Laboratory Tests Test 12/27/16 17:30 12/28/16 03:45 Body Fluid Source Pending Body Fluid Volume Pending Body Fluid Appearance Clear Body Fluid pH 8.0 Body Fluid RBC 1350 /CUMM Body Fluid Total Nucleated Cells 25 /CUMM Body Fluid Polynuclear WBCs (%) 16 % Body Fluid Mononuclear WBCs (%) 79 % Body Fluid Mesothelial Cells (%) 5 % Body Fluid Glucose 117 mg/dL (.) Body Fluid Total Protein 1.4 g/dL (.) Body Fluid Albumin 0.8 g/dL (.) Body Fluid Lactate Dehydrogenase Pending White Blood Count 7.3 K/UL (4.8-10.8) Red Blood Count 2.93 M/UL (4.70-6.10) L Hemoglobin 9.2 G/DL (14.2-18.0) L Hematocrit 27.6 % (42.0-52.0) L Mean Corpuscular Volume 94 FL (80-99) Mean Corpuscular Hemoglobin 31.6 PG (27.0-31.0) H Mean Corpuscular Hemoglobin Concent 33.6 G/DL (32.0-36.0) Red Cell Distribution Width 19.5 % (11.6-14.8) H Platelet Count 216 K/UL (150-450) Mean Platelet Volume 6.3 FL (6.5-10.1) L Neutrophils (%) (Auto) 78.5 % (45.0-75.0) H Lymphocytes (%) (Auto) 9.4 % (20.0-45.0) L Monocytes (%) (Auto) 9.5 % (1.0-10.0) Eosinophils (%) (Auto) 1.8 % (0.0-3.0) Basophils (%) (Auto) 0.8 % (0.0-2.0) Prothrombin Time 12.5 SEC (9.30-11.50) H Prothromb Time International Ratio 1.2 (0.9-1.1) H Activated Partial Thromboplast Time 33 SEC (23-33) Sodium Level 137 MMOL/L (136-145) Potassium Level 3.8 MMOL/L (3.5-5.1) Chloride Level 107 MMOL/L (98-107) Carbon Dioxide Level 22 MMOL/L (21-32) Anion Gap 8 (5-15) Blood Urea Nitrogen 31 mg/dL (7-18) H Creatinine 1.1 MG/DL (0.55-1.30) Estimat Glomerular Filtration Rate > 60 mL/min (>60) Glucose Level 125 MG/DL (74-106) H Calcium Level 8.3 MG/DL (8.5-10.1) L Total Bilirubin 6.4 MG/DL (0.2-1.0) H Direct Bilirubin 5.4 MG/DL (0.0-0.3) H Aspartate Amino Transf (AST/SGOT) 221 U/L (15-37) H Alanine Aminotransferase (ALT/SGPT) 67 U/L (12-78) Alkaline Phosphatase 602 U/L (46-116) H Total Protein 6.7 G/DL (6.4-8.2) Albumin 1.6 G/DL (3.4-5.0) L Globulin 5.1 g/dL Albumin/Globulin Ratio 0.3 (1.0-2.7) L Microbiology Date/Time Source Procedure Growth Status 12/27/16 17:30 Ascities Fluid Gram Stain - Final Resulted 12/27/16 17:30 Ascities Fluid Body Fluid Culture Pending Resulted Objective Head and Neck: Positive JVD LUNGS: Decreased breath sounds. CARDIOVASCULAR: Tachycardic. S1 and S2. ABDOMEN: Less distended with ascites. EXTREMITIES: 2+ pitting edema. MELBA IBRAHIM Dec 28, 2016 15:47
[2016-12-28] MEDS ORDERED: NS 275ml ONE (17:28)
[2016-12-28] MEDS ORDERED: Tubing IV Secondary IV ONE (17:28)
[2016-12-28] MEDS ORDERED: Sterile Water Irrig 1000ml IRRIG ONE (17:28)
--- NOTE | 2016-12-28 19:43 | General Progress Note ---
Assessment/Plan Assessment/Plan ASSESSMENT AND RECOMMENDATIONS: 1. 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 The patient is currently getting chemotherapy at [facility]. --> patient was agreeable to hospice but has now changed his mind 2. Anemia secondary to upper gastrointestinal bleed. GI following. 3. Anemia, secondary to chronic disease. Anemia workup has been ordered and reviewed --> transfuse if drops below 7 5. Ascites. received paracentesis yielding 8.5 liters 6. Nausea and vomiting due to chemotherapy. 7. Coagulopathy. 8. Malnutrition, vitamin K deficiency a factor. Subjective Allergies: Coded Allergies: No Known Allergies (Unverified , 12/22/16) Subjective s/p paracentesis Objective Last 24 Hour Vital Signs Date Time Temp Pulse Resp B/P (MAP) Pulse Ox O2 Delivery O2 Flow Rate FiO2 12/28/16 12:00 105 12/28/16 12:00 97.9 90 18 120/74 100 Nasal Cannula 2.0 12/28/16 08:00 96 12/28/16 08:00 98.1 108 18 128/74 97 Nasal Cannula 2.0 12/28/16 04:00 97.7 100 22 116/66 100 Nasal Cannula 2.0 12/28/16 04:00 100 12/28/16 00:00 97.9 99 18 104/62 100 Nasal Cannula 2.0 12/28/16 00:00 99 12/27/16 20:00 98.1 92 20 113/70 100 Nasal Cannula 2.0 12/27/16 20:00 95 Intake and Output 12/28/16 12/29/16 19:00 07:00 Intake Total 830 ml Balance 830 ml Intake Oral 480 ml IV Total 350 ml Laboratory Tests 12/28/16 03:45: White Blood Count 7.3, Red Blood Count 2.93L, Hemoglobin 9.2L, Hematocrit 27.6L , Mean Corpuscular Volume 94, Mean Corpuscular Hemoglobin 31.6H, Mean Corpuscular Hemoglobin Concent 33.6, Red Cell Distribution Width 19.5H, Platelet Count 216, Mean Platelet Volume 6.3L, Neutrophils (%) (Auto) 78.5H, Lymphocytes (%) (Auto) 9.4L, Monocytes (%) (Auto) 9.5, Eosinophils (%) (Auto) 1.8, Basophils (%) (Auto) 0.8, Prothrombin Time 12.5H, Prothromb Time International Ratio 1.2H, Activated Partial Thromboplast Time 33, Sodium Level 137, Potassium Level 3.8, Chloride Level 107, Carbon Dioxide Level 22, Anion Gap 8, Blood Urea Nitrogen 31H, Creatinine 1.1, Estimat Glomerular Filtration Rate > 60, Glucose Level 125H, Calcium Level 8.3L, Total Bilirubin 6.4H, Direct Bilirubin 5.4H, Aspartate Amino Transf (AST/SGOT) 221H, Alanine Aminotransferase (ALT/SGPT) 67, Alkaline Phosphatase 602H, Total Protein 6.7, Albumin 1.6L, Globulin 5.1, Albumin/Globulin Ratio 0.3L Height (Feet): 5 Height (Inches): 5.00 Weight (Pounds): 138 Dwayne Moe Dec 28, 2016 19:43
--- NOTE | 2016-12-28 23:11 | Cardiology Report ---
APPROVED REPORT EKG Measurement Heart [id number] Sinus tachycardia Left axis deviation Anterolateral infarct, age undetermined Abnormal ECG
[2016-12-29 14:35] LABS: COMMENT,BODY FLUID PATHOLOGIST COMMENT
--- NOTE | 2016-12-29 16:20 | Discharge Summary ---
Discharge Summary Hospital Course Date of Admission Dec 22, 2016 at 15:58 Date of Discharge Dec 28, 2016 at 17:44 Admitting Diagnosis Upper GI Bleed HPI Segun Johns is a 51 year old male who was admitted on Dec 22, 2016 at 15:58 for Upper Gastrointestinal Bleeding Hospital Course [id number] Discharge Discharge Disposition Patient was discharged to Home (01) Discharge Diagnoses: Lilia Pollack NP Dec 29, 2016 16:20
--- NOTE | 2016-12-29 23:15 | Discharge Summary 2 SIG ---
DATE OF ADMISSION: 12/22/2016 DATE OF DISCHARGE: 12/28/2016 CONSULTANTS: 1. Dwayne Moe M.D. 2. Sidney Ramirez M.D. 3. Rody Quevedo M.D. 4. Dario Villanueva M.D. 5. Bryce Diallo M.D. BRIEF HOSPITAL COURSE: The patient is a 51-year-old male with past medical history significant for pancreatic cancer, presented to ED complaining of coffee-ground emesis status post chemotherapy. The patient was seeing an oncologist at [facility]. On evaluation at ED, hemoglobin and hematocrit were stable. INR was 1.3. He was given Protonix and Zofran. LFTs were elevated. AST 207 and ALT 53. Total bilirubin 7. Direct bilirubin 4.5. Alkaline phosphatase of 431. He had a CT of the abdomen and pelvis that showed a pancreatic mass and mass throughout the liver. There were peritoneal masses and mesenteric and retroperitoneal adenopathy and large amount of ascites. WBC was elevated to 14. Sodium was 132 and potassium 4.9. He was admitted to medical floor for evaluation of upper gastrointestinal bleed. Dr. Quevedo was consulted for leukocytosis and sepsis and was started empirically on Zosyn and vancomycin. He was noted to be tachycardic. There was no evidence of atrial fibrillation. Tachycardia was secondary to hepatic encephalopathy and sepsis. He was followed by the oncologist, Dr. Moe. The patient has a stage IV pancreatic cancer with peritoneal mass and adenopathy and on chemotherapy. He had new onset of persistent unresponsiveness and had an NG tube placed in. A stat CT of the brain was done and revealed no acute intracranial abnormalities. He was given lactulose, Xifaxan, and vitamin K. Anemia workup done showed anemia secondary to chronic disease and possible gastrointestinal bleed. Stool OB was positive. Not candidate for endoscopy due to poor overall condition. Echocardiogram done showed ejection fraction 60% to 65% with grade 1 diastolic dysfunction. There was a large posterior pleural effusion noted. He underwent paracentesis on 12/27/2016 yielding 8.5 liters of clear yellow fluid. Body fluid culture did not isolate any growth. The patient received five days of Zosyn and was discontinued. The patient had poor prognosis due to advanced pancreatic cancer and was recommended palliative care. He was referred to hospice, however, family decided against it. He was then discharged home. FINAL DIAGNOSES: 1. Upper gastrointestinal bleed. 2. Acute kidney injury. 3. Ascites. 4. Adenocarcinoma of the pancreas, stage IV. 5. Anemia of chronic disease. 6. Anemia due to upper gastrointestinal bleed. 7. Malnutrition with vitamin K deficiency factor. 8. Coagulopathy. 9. Sinus tachycardia due to hepatic encephalopathy and sepsis. 10. Hyponatremia. 11. Hypokalemia. 12. Poor prognosis. 13. Persistent unresponsiveness. 14. Abnormal liver transaminases. DISCHARGE DISPOSITION: The patient was discharged home. DISCHARGE MEDICATIONS: Refer to medication list. FOLLOWUP: The patient was advised to follow up with PMD. Antolin Lopez M.D. I have been assigned to dictate discharge summary on this account and I was not involved in the patient's management. Lilia Pollack N.P. DR: ELSY JOB#: [id number] CC: APOLLO
[2017-01-01 06:23] LABS: BD FL SOURCE THORACENTESIS; BD FL VOLUME 24 mL; LDH, BODY FLUID 281 U/L
== END 2016-12-28 17:44 | disposition home or self-care (01) | DRG 720 ==
LOC: EDBD 14:23 → EMR 15:34 → 3E 15:58 → EDBEDREQSVC 17:54 → EDBEDREQ 18:45 → 3E 20:37 → 2W 12-23 08:37
PROC: 0W9G3ZZ Drainage of Peritoneal Cavity, Percutaneous Approach (ICD-10-PCS; principal; 2016-12-27)
DX: A41.9 Sepsis, unspecified organism (principal); R18.0 Malignant ascites; N17.9 Acute kidney failure, unspecified; C78.6 Secondary malignant neoplasm of retroperitoneum and peritoneum; D68.4 Acquired coagulation factor deficiency; C78.7 Secondary malignant neoplasm of liver and intrahepatic bile duct; C25.9 Malignant neoplasm of pancreas, unspecified; R18.8 Other ascites; K92.2 Gastrointestinal hemorrhage, unspecified; E46 Unspecified protein-calorie malnutrition; E87.1 Hypo-osmolality and hyponatremia; E56.1 Deficiency of vitamin K; K72.90 Hepatic failure, unspecified without coma; D63.8 Anemia in other chronic diseases classified elsewhere; Z68.22 Body mass index [BMI] 22.0-22.9, adult; D50.0 Iron deficiency anemia secondary to blood loss (chronic); E87.6 Hypokalemia; R11.2 Nausea with vomiting, unspecified; T45.1X5A Adverse effect of antineoplastic and immunosuppressive drugs, initial encounter
CPT/HCPCS: 36415; 70450; 71010; 74000; 74177; 76700; 76942; 80048; 80053; 80202; 81003; 82140; 82248; 82270; 82607; 82746; 82962; 83010; 83540; 83550; 83615; 83690; 83880; 83921; 83986; 84443; 85007; 85025; 85060; 85610; 85730; 86301; 86850; 86900; 86901; 87040; 87070; 87205; 89051; 93005; 93306; 94664; 94760; 99285; J2405; J3430